=== PATIENT | female | born 1975 | race Caucasian/White ===

== ENCOUNTER 2016-08-22 12:04 | Emergency (ER) | payer SELFPAY ==
[~2016-08-22] VITALS: Ht 157.5 cm; Wt 79.4 kg
[2016-08-22] MEDS ORDERED: RT-ALBUTEROL/IPRATROPIUM 3 ML (DUONEB) VIAL INH ONE (13:15)
[2016-08-22] MEDS ORDERED: RT-ALBUINH IH (13:15)
[2016-08-22] MEDS ORDERED: AZIT250T5 PO (13:15)
--- NOTE | 2016-08-22 13:15 | ED Cough/URI ---
General Chief Complaint: Cough/Cold/Flu Symptoms Stated Complaint: COUGH/CONGESTION SOA CHEST PAIN Source: patient Exam Limitations: no limitations History of Present Illness Time seen by provider: 13:12 Initial Comments To ER with reports of a nonproductive cough for the past 2 days, central chest pain, neck pain, sore throat, rhinorrhea. History of asthma. She also has shortness of breath. No exogenous estrogen use, no dvt hx, non smoker, no unilateral leg swelling. Timing/Duration: getting worse Severity/Quality: moderate Associated Symptoms: cough, nasal congestion, nasal drainage, shortness of breath Allergies and Home Medications Allergies Coded Allergies: No Known Drug Allergies (Unverified , 08/22/16) Home Medications Albuterol Sulfate 8.5 Gm Hfa.aer.ad #1 1-2 PUFF IH Q4H PRN PRN SHORTNESS OF BREATH Prescribed by: LEAH MERRITT on 08/22/16 1315 Azithromycin 250 Mg Tablet #6 250 MG PO UD TAKE 2 TABLETS ON DAY ONE THEN TAKE 1 TABLET DAILY FOR FOUR MORE DAYS Prescribed by: LEAH MERRITT on 08/22/16 1315 Constitutional: see HPI EENTM: nose congestion Respiratory: see HPI short of breath Cardiovascular: no symptoms reported Genitourinary: no symptoms reported Musculoskeletal: no symptoms reported Skin: no symptoms reported Psychiatric/Neurological: No Symptoms Reported Hematologic/Lymphatic: No Symptoms Reported Past Qpkrwxz-Dvczkd-Oruqso Hx Patient Social History Alcohol Use: Denies Use Recreational Drug Use: No Smoking Status: Never a Smoker Recent Foreign Travel: No Contact w/Someone Who Travel: No Recent Hopitalizations: No Physical Abuse Screen: No Sexual Abuse: No Surgeries HX Surgeries: No Physical Exam Vital Signs Vital Sign - Last 12Hours Capillary Refill : General Appearance: WD/WN no apparent distress Eyes: Bilateral Eye EOMI, Bilateral Eye Normal Inspection, Bilateral Eye PERRL HEENT: PERRL/EOMI normal ENT inspection TM abnormal (R) (erythematous and bulging. She denies pain but states that it is itchy) Neck: non-tender full range of motion Respiratory: no respiratory distress no accessory muscle use decreased breath soundsNo crackles, No rales, No rhonchi, No stridor, No wheezing Cardiovascular: regular rate, rhythm no murmur Gastrointestinal: normal bowel sounds non tender soft Neurologic/Psychiatric: alert normal mood/affect oriented x 3 Skin: normal color warm/dry Progress/Results/Core Measures Results/Orders My Orders Orders-LEAH MERRITT APRN Ekg Tracing (08/22/16 13:11) Albuterol/Ipra Inhalation Soln (Duoneb I (08/22/16 13:15) Svn Sm Volume Nebulizer Rt-Rfs (08/22/16 13:11) Medications Given in ED Current Medications Medications Dose Ordered Sig/Roseline Route Start Time Stop Time Status Last Admin Dose Admin Albuterol/ Ipratropium 3 ml ONCE ONCE INH 08/22/16 13:15 08/22/16 13:16 DC 08/22/16 13:23 3 ML Vital Signs/I&O Vital Sign - Last 12Hours 08/22/16 08/22/16 08/22/16 13:05 13:05 13:24 Temp 98.9 Pulse 84 Resp 16 B/P 122/74 Pulse Ox 96 96 O2 Delivery Room Air Room Air Room Air Departure Communication Progress Notes 1349- Feels better after duoneb albeit somewhat jittery. O2 97% room air, no distress, HR 91. Impression Impression: Primary Impression: Upper respiratory infection Qualified Code: J06.9 - Acute upper respiratory infection, unspecified Additional Impression: Otitis media Disposition: HOME, SELF-CARE Condition: Improved Departure-Patient Inst. Decision time for Depature: 13:13 Referrals: NO,LOCAL PHYSICIAN (PCP/Family) Primary Care Physician Patient Instructions: Bacterial Upper Respiratory Infection, Adult, Ear Infections (Otitis Media) Add. Discharge Instructions: All discharge instructions reviewed with patient and/or family. Voiced understanding. Scripts Albuterol Sulfate (Proair Hfa)8.5 Gm Hfa.aer.ad1-2 Puff IH Q4H PRN SHORTNESS OF BREATH #1 INH Prov:LEAH MERRITT APRN 08/22/16 Azithromycin 250 Mg [id number] Mg PO UD #6 TAB TAKE 2 TABLETS ON DAY ONE THEN TAKE 1 TABLET DAILY FOR FOUR MORE DAYS Prov:LEAH MERRITT APRN 08/22/16 Work/School Note: Work Release Form Date Seen in the Emergency Department: Aug 22, 2016 Return to Work: Aug 24, 2016 LEAH MERRITT APRN Aug 22, 2016 13:15
[2016-08-22 13:54] VITALS: BP 122/74
== END 2016-08-22 13:54 | disposition home or self-care (01) ==
LOC: EDUNIT# 12:04 → ER 12:08
DX: J06.9 Acute upper respiratory infection, unspecified (principal); H66.91 Otitis media, unspecified, right ear
CPT/HCPCS: 93005

== ENCOUNTER 2017-10-12 19:01 | Emergency (ER) | payer SELFPAY ==
[~2017-10-12] VITALS: Ht 160 cm; Wt 90.7 kg
[~2017-10-12 19:01] MED LIST: AZIT250T12 PO; RT-ALBUINH IH
--- OUTSIDE RECORDS SUMMARY | 2017-10-12 19:06 | XMS REPORT | Continuity of Care Document ---
Author Author [facility] Address Unknown Phone Unavailable Allergies Active Description Code Type Severity Reaction Onset Reported/Identified Relationship to Patient Clinical Status Yes Demerol Drug Allergy 09/07/2010 Yes Stadol Drug Allergy 09/07/2010 Yes sulfa drug Drug Allergy 09/07/2010 Yes Vicodin Drug Allergy 06/22/2011 Medications There is no data. Problems Date Dx Coded Attending Type Code Diagnosis Diagnosed By 09/07/2010 MARYLOU AZAR APRN 493.90 ASTHMA 09/07/2010 493.90 ASTHMA 02/05/2011 MARYLOU AZAR APRN 599.0 Urinary Tract Infection Site Not Specified 02/05/2011 599.0 Urinary Tract Infection Site Not Specified 06/22/2011 MARYLOU AZAR APRN 626.9 Unspecified Disorders Of Menstruation And Other Abnormal Bleeding From Female Genital Tract 06/22/2011 MARYLOU AZAR APRN 788.1 Dysuria 06/22/2011 626.9 Unspecified Disorders Of Menstruation And Other Abnormal Bleeding From Female Genital Tract 06/22/2011 788.1 Dysuria 09/21/2011 MARYLOU AZAR APRN 786.2 COUGH 09/21/2011 786.2 COUGH 05/29/2012 MARYLOU AZAR APRN 786.07 WHEEZING 05/29/2012 786.07 WHEEZING 07/28/2012 MARYLOU AZAR APRN 053.9 HERPES ZOSTER WITHOUT COMPLICATION 07/28/2012 MARYLOU AZAR APRN 616.10 VAGINITIS AND VULVOVAGINITIS UNSPECIFIED 07/28/2012 MARYLOU AZAR APRN V76.10 BREAST CANCER SCREENING 07/28/2012 MARYLOU AZAR APRN V76.2 CERVICAL CANCER SCREENING (PAP SMEAR) Procedures Code Description Performed By Performed On Q0091 PAP SMEAR OBTAIN SMEAR 07/29/2012 85907 PAP SMEAR 08/01/2012 Results There is no data. Encounters ACCT No. Visit Date/Time Discharge Status Pt. Type Provider Facility Loc./Unit Complaint [id number] 07/28/2012 14:43:00 07/28/2012 23:59:59 CLS Outpatient MARYLOU AZAR APRN [id number] 05/29/2012 10:02:00 05/29/2012 23:59:59 CLS Outpatient
[2017-10-12] MEDS ORDERED: KETOROLAC 30 MG/ML VIAL IVP ONE (19:30)
[2017-10-12] MEDS ORDERED: NS IV 1000 ML 1,000 ML IV SCH (19:30)
--- NOTE | 2017-10-12 19:34 | ED Cough/URI ---
General Chief Complaint: Cough/Cold/Flu Symptoms Stated Complaint: CP, BACK PAIN,COUGH Nursing Triage Note: PT C/O COUGH, CHEST WALL PAIN, MACIAS, CONGESTION FOR A COUPLE OF DAYS. SHE DENIES FEVER OR CHILLS. Source: patient Exam Limitations: no limitations History of Present Illness Date Seen by Provider: Oct 12, 2017 Time Seen by Provider: 19:32 Initial Comments To ER with reports of a three-day history of central chest pain, productive cough, wheezing that clears when coughing in the left upper lung she states, no fever, headache, body aches. She has also had some diarrhea without blood or mucus. Timing/Duration: constant Severity/Quality: moderate Associated Symptoms: cough Allergies and Home Medications Allergies Coded Allergies: butorphanol (Verified Adverse Reaction, Unknown, VOMITING, 10/12/17) meperidine (Verified Adverse Reaction, Unknown, VOMITING, 10/12/17) Uncoded Allergies: SULFA (Adverse Reaction, Unknown, VOMITING, 10/12/17) Home Medications Albuterol Sulfate 8.5 Gm Hfa.aer.ad, 1-2 PUFF IH Q4H PRN for SHORTNESS OF BREATH Prescribed by: LEAH MERRITT on 08/22/16 1315 Azithromycin 250 Mg Tablet, 250 MG PO UD TAKE 2 TABLETS ON DAY ONE THEN TAKE 1 TABLET DAILY FOR FOUR MORE DAYS Prescribed by: LEAH MERRITT on 08/22/16 1315 Constitutional: see HPI, No chills, No fever EENTM: see HPI Respiratory: see HPI, cough, short of breath, wheezing Cardiovascular: no symptoms reported Genitourinary: no symptoms reported Musculoskeletal: no symptoms reported Skin: no symptoms reported Psychiatric/Neurological: No Symptoms Reported Hematologic/Lymphatic: No Symptoms Reported Immunological/Allergic: no symptoms reported Past Uzjbybe-Kjxqzn-Izdxyk Hx Patient Social History Alcohol Use: Denies Use Recreational Drug Use: No Smoking Status: Never a Smoker 2nd Hand Smoke Exposure: No Recent Foreign Travel: No Contact w/Someone Who Travel: No Recent Infectious Disease Expo: No Recent Hopitalizations: No Seasonal Allergies Seasonal Allergies: No Surgeries History of Surgeries: Yes Surgeries: Tubal Ligation Respiratory History of Respiratory Disorde: Yes Respiratory Disorders: Asthma Physical Exam Vital Signs Vital Signs - First Documented 10/12/17 19:11 Temp 97.5 Pulse 108 Resp 20 B/P (MAP) 143/89 (107) Pulse Ox 96 O2 Delivery Room Air Capillary Refill : Less Than 3 Seconds General Appearance: WD/WN, no apparent distress Eyes: Bilateral Eye Normal Inspection, Bilateral Eye PERRL, Bilateral Eye EOMI HEENT: PERRL/EOMI, normal ENT inspection Neck: non-tender, full range of motion Respiratory: normal breath sounds, no respiratory distress, no accessory muscle use Cardiovascular: no murmur, tachycardia Extremities: normal range of motion, non-tender Neurologic/Psychiatric: alert, normal mood/affect, oriented x 3 Skin: normal color, warm/dry Progress/Results/Core Measures Suspected Sepsis Recent Fever Within 48 Hours: No Infection Criteria Present: None New/Unexplained Altered Menta: No Sepsis Screen: No Definite Risk Sepsis Diagnosis: SIRS Temperature:97.5 Pulse: 108 Respiratory Rate: 20 Laboratory Tests 10/12/17 19:30: White Blood Count 6.4 Blood Pressure 143 /89 Mean: 107 Laboratory Tests 10/12/17 19:30: Creatinine 0.78, Platelet Count 252 Results/Orders Lab Results Laboratory Tests Test 10/12/17 19:30 Range/Units White Blood Count 6.4 4.3-11.0 10^3/uL Red Blood Count 4.82 4.35-5.85 10^6/uL Hemoglobin 13.4 11.5-16.0 G/DL Hematocrit 39 35-52 % Mean Corpuscular Volume 81 80-99 FL Mean Corpuscular Hemoglobin 28 25-34 PG Mean Corpuscular Hemoglobin Concent 34 32-36 G/DL Red Cell Distribution Width 13.8 10.0-14.5 % Platelet Count 252 130-400 10^3/uL Mean Platelet Volume 9.4 7.4-10.4 FL Neutrophils (%) (Auto) 58 42-75 % Lymphocytes (%) (Auto) 30 12-44 % Monocytes (%) (Auto) 9 0-12 % Eosinophils (%) (Auto) 3 0-10 % Basophils (%) (Auto) 0 0-10 % Neutrophils # (Auto) 3.7 1.8-7.8 X 10^3 Lymphocytes # (Auto) 1.9 1.0-4.0 X 10^3 Monocytes # (Auto) 0.6 0.0-1.0 X 10^3 Eosinophils # (Auto) 0.2 0.0-0.3 10^3/uL Basophils # (Auto) 0.0 0.0-0.1 10^3/uL Sodium Level 140 135-145 MMOL/L Potassium Level 4.0 3.6-5.0 MMOL/L Chloride Level 110 H 98-107 MMOL/L Carbon Dioxide Level 21 21-32 MMOL/L Anion Gap 9 5-14 MMOL/L Blood Urea Nitrogen 9 7-18 MG/DL Creatinine 0.78 0.60-1.30 MG/DL Estimat Glomerular Filtration Rate > 60 BUN/Creatinine Ratio 12 Glucose Level 122 H 70-105 MG/DL Calcium Level 9.1 8.5-10.1 MG/DL Micro Results Microbiology 10/12/17 Influenza Types A,B Antigen ([place]) - Final, Complete My Orders Orders - LEAH MERRITT APRN Chest Pa/Lat (2 View) (10/12/17 19:19) Cbc With Automated Diff (10/12/17 19:29) Basic Metabolic Panel (10/12/17 19:29) Influenza A And B Antigens (10/12/17 19:29) Saline Lock/Iv-Start (10/12/17 19:29) Ns Iv 1000 Ml (Sodium Chloride 0.9%) (10/12/17 19:30) Ketorolac Injection (Toradol Injection) (10/12/17 19:30) Medications Given in ED Current Medications Medications Dose Ordered Sig/Roseline Route Start Time Stop Time Status Last Admin Dose Admin Ketorolac Tromethamine 30 mg ONCE ONCE IVP 10/12/17 19:30 10/12/17 19:31 DC 10/12/17 19:41 30 MG Vital Signs/I&O Vital Sign - Last 12Hours 10/12/17 19:11 Temp 97.5 Pulse 108 Resp 20 B/P (MAP) 143/89 (107) Pulse Ox 96 O2 Delivery Room Air Capillary Refill : Less Than 3 Seconds Blood Pressure Mean: 107 Departure Impression Impression: Primary Impression: Viral syndrome Disposition: 01 HOME, SELF-CARE Condition: Stable Departure-Patient Inst. Decision time for Depature: 20:56 Referrals: NO,LOCAL PHYSICIAN (PCP/Family) Primary Care Physician Patient Instructions: Viral Syndrome (DC) Add. Discharge Instructions: 1. Return to ER for any concerns 2. Follow-up with your doctor next week 3. All discharge instructions reviewed with patient and/or family. Voiced understanding. Scripts D-Methorphan Hb/P-Epd HCl/Bpm (Bromfed Dm Cough Syrup) 118 Ml Syrup 5 ML PO Q6H Y for CONGESTION, #120 ML Prov: LEAH MERRITT APRN 10/12/17 LEAH MERRITT APRN Oct 12, 2017 19:34
[2017-10-12 19:46] LABS: BASOPHILS % (AUTO) 0 % (0-10); EOSINOPHILS # (AUTO) 0.2 10^3/uL (0.0-0.3); EOSINOPHILS % (AUTO) 3 % (0-10); HEMATOCRIT 39 % (35-52); HEMOGLOBIN 13.4 G/DL (11.5-16.0); LYMPHOCYTES # (AUTO) 1.9 X 10^3 (1.0-4.0); LYMPHOCYTES % (AUTO) 30 % (12-44); MEAN CORPUSCULAR HEMOGLOBIN 28 PG (25-34); MEAN CORPUSCULAR HGB CONC 34 G/DL (32-36); MEAN CORPUSCULAR VOLUME 81 FL (80-99); MEAN PLATELET VOLUME 9.4 FL (7.4-10.4); MONOCYTES # (AUTO) 0.6 X 10^3 (0.0-1.0); MONOCYTES % (AUTO) 9 % (0-12); NEUTROPHILS # (AUTO) 3.7 X 10^3 (1.8-7.8); NEUTROPHILS % (AUTO) 58 % (42-75); PLATELET COUNT 252 10^3/uL (130-400); RED BLOOD COUNT 4.82 10^6/uL (4.35-5.85); RED CELL DISTRIBUTION WIDTH 13.8 % (10.0-14.5); WHITE BLOOD COUNT 6.4 10^3/uL (4.3-11.0)
[2017-10-12 20:04] LABS: BUN/CREATININE RATIO 12; CALCIUM 9.1 MG/DL (8.5-10.1); CARBON DIOXIDE 21 MMOL/L (21-32); CHLORIDE 110 MMOL/L (98-107); CREATININE SERUM 0.78 MG/DL (0.60-1.30); GFR ESTIMATED > 60; GLUCOSE 122 MG/DL (70-105); SODIUM 140 MMOL/L (135-145)
--- NOTE | 2017-10-12 20:45 | Diagnostic Imaging Report ---
EXAMINATION: Chest (PA and lateral). CLINICAL INDICATION: 42-year-old female, cough, chest wall pain. COMPARISON: None. FINDINGS: Heart size and mediastinal contours are unremarkable. There is no identified pneumothorax. There is no pleural effusion. There is no identified focal airspace consolidation. IMPRESSION: No identified acute cardiopulmonary abnormality. Dictated by: Dictated on workstation # [id number]
[2017-10-12] MEDS ORDERED: D-ME118S33 PO (20:57)
[2017-10-12 21:00] VITALS: BP 143/89
== END 2017-10-12 21:00 | disposition home or self-care (01) ==
LOC: EDUNIT# 19:01 → ER 19:03
DX: B34.9 Viral infection, unspecified (principal); J45.909 Unspecified asthma, uncomplicated; Z98.51 Tubal ligation status; Z88.2 Allergy status to sulfonamides; Z88.5 Allergy status to narcotic agent; Z88.6 Allergy status to analgesic agent
CPT/HCPCS: 36415; 71046; 80048; 85025; 87804; 96361; 96374

== ENCOUNTER 2017-10-14 13:12 | Emergency (ER) | payer SELFPAY ==
[~2017-10-14] VITALS: Ht 160 cm; Wt 90.7 kg
[~2017-10-14 13:12] MED LIST changes: +D-ME118S33 PO
[2017-10-14 15:28] LABS: BILIRUBIN,URINE NEGATIVE (NEGATIVE); CLARITY,URINE SLIGHTLY CLOUDY; COLOR,URINE YELLOW; GLUCOSE, URINE (UA) NEGATIVE (NEGATIVE); KETONES,URINE NEGATIVE (NEGATIVE); LEUKOCYTE ESTERASE ,URINE NEGATIVE (NEGATIVE); NITRITE,URINE NEGATIVE (NEGATIVE); PH,URINE 7 (5-9); PROTEIN,URINE NEGATIVE (NEGATIVE); UROBILINOGEN,URINE NORMAL (NORMAL)
[2017-10-14 15:34] LABS: BACTERIA,URINE NEGATIVE /HPF
[2017-10-14] MEDS ORDERED: LACTATED RINGERS 1,000 ML IV ONE ×2 (15:42→15:43)
[2017-10-14] MEDS ORDERED: ONDANSETRON 4 MG/2 ML (SDV) Z0FRAN IVP ONE (15:45)
[2017-10-14] MEDS ORDERED: KETOROLAC 30 MG/ML VIAL IVP ONE (15:45)
[2017-10-14] MEDS ORDERED: RT-ALBUTEROL/IPRATROPIUM 3 ML (DUONEB) VIAL INH ONE (15:45)
--- NOTE | 2017-10-14 15:49 | ED Respiratory ---
General Chief Complaint: General Problems/Pain Stated Complaint: BACK PAIN,MACIAS Nursing Triage Note: PT TO ED W/ C/O BACK PAIN ONSET X3 DAYS, HEADACHE ONSET X4 DAYS ET COUGH/SOB ALSO ONSET X4 DAYS, WORSE WHEN SHE LAYS ON HER LT SIDE. DRY COUGH NOTED, NO SOB OBSERVED AT THIS TIME. PT ABLE TO TALK W/O PAUSING TO BREATH Source: patient Exam Limitations: no limitations History of Present Illness Date Seen by Provider: Oct 14, 2017 Time Seen by Provider: 15:34 Initial Comments Patient presents to the ER by private conveyance with a chief complaint of 3 days progressively worsening headache, nonproductive cough, shortness of breath , wheezing. She thought she might have the flu because she's had chills but she' s had no objective fever measured. She was here 2 days ago in the ER and had a negative influenza swab. Patient also has a headache that is bitemporal non- throbbing non intermittent that has not responded to one dose of Advil in the last 24 hours. She has not had any Tylenol. Last dose of Advil was sometime last night around 8:00. She has had to use her breathing treatments, MDI at home morning the last 2 days because of wheezing. Allergies and Home Medications Allergies Coded Allergies: butorphanol (Verified Adverse Reaction, Unknown, VOMITING, 10/12/17) meperidine (Verified Adverse Reaction, Unknown, VOMITING, 10/12/17) Uncoded Allergies: SULFA (Adverse Reaction, Unknown, VOMITING, 10/12/17) Home Medications Albuterol Sulfate 8.5 Gm Hfa.aer.ad, 1-2 PUFF IH Q4H PRN for SHORTNESS OF BREATH Prescribed by: LEAH MERRITT on 08/22/16 1315 Azithromycin 250 Mg Tablet, 250 MG PO UD TAKE 2 TABLETS ON DAY ONE THEN TAKE 1 TABLET DAILY FOR FOUR MORE DAYS Prescribed by: LEAH MERRITT on 08/22/16 1315 D-Methorphan Hb/P-Epd HCl/Bpm 118 Ml Syrup, 5 ML PO Q6H PRN for CONGESTION Prescribed by: LEAH MERRITT on 10/12/172056 Constitutional: chills, No diaphoresis, No fever, malaise EENTM: other (right ear itches), No ear discharge, No ear pain Respiratory: cough, No phlegm, short of breath, wheezing Cardiovascular: No chest pain, No edema, No palpitations Gastrointestinal: No abdominal pain, No constipation, No diarrhea, nausea, No vomiting Genitourinary: No discharge, No dysuria, No incontinence : No Musculoskeletal: No back pain, No joint pain Skin: No pruritus, No rash Psychiatric/Neurological: Headache, Denies Numbness, Denies Paresthesia Past Cguelwy-Ibxrpj-Daaabe Hx Patient Social History Alcohol Use: Denies Use Recreational Drug Use: No Smoking Status: Never a Smoker 2nd Hand Smoke Exposure: No Recent Foreign Travel: No Contact w/Someone Who Travel: No Recent Infectious Disease Expo: No Recent Hopitalizations: No Seasonal Allergies Seasonal Allergies: No Surgeries History of Surgeries: Yes Surgeries: Tubal Ligation Respiratory History of Respiratory Disorde: Yes Respiratory Disorders: Asthma Physical Exam Vital Signs Vital Signs - First Documented 10/14/17 14:26 Temp 98.2 Pulse 103 Resp 20 B/P (MAP) 137/68 (91) Pulse Ox 94 O2 Delivery Room Air Capillary Refill : Less Than 3 Seconds General Appearance: WD/WN, mild distress Eyes: Bilateral Eye Normal Inspection, Bilateral Eye PERRL, Bilateral Eye EOMI HEENT: PERRL/EOMI, pharynx normal, TM abnormal (R) (mild injection without loss of landmarks. Clear effusion.), other (mild bilateral maxillary sinus tenderness.) Neck: non-tender, supple, normal inspection Respiratory: chest non-tender, lungs clear, normal breath sounds, no respiratory distress, no accessory muscle use Cardiovascular: normal peripheral pulses, regular rate, rhythm Gastrointestinal: normal bowel sounds, non tender, soft Extremities: non-tender, normal inspection, normal capillary refill Neurologic/Psychiatric: alert, oriented x 3 Skin: normal color, warm/dry Progress/Results/Core Measures Suspected Sepsis Recent Fever Within 48 Hours: No Infection Criteria Present: None New/Unexplained Altered Menta: No Sepsis Screen: No Definite Risk Sepsis Diagnosis: SIRS Temperature:98.2 Pulse: 103 Respiratory Rate: 20 Laboratory Tests 10/14/17 15:55: White Blood Count 5.9 Blood Pressure 137 /68 Mean: 91 Laboratory Tests 10/14/17 15:55: Creatinine 0.77, Platelet Count 210, Total Bilirubin 0.4 Results/Orders Lab Results Laboratory Tests Test 10/14/17 15:15 10/14/17 15:55 Range/Units Urine Color YELLOW Urine Clarity SLIGHTLY CLOUDY Urine pH 7 5-9 Urine Specific [place] 1.005 L 1.016-1.022 Urine Protein NEGATIVE NEGATIVE Urine Glucose (UA) NEGATIVE NEGATIVE Urine Ketones NEGATIVE NEGATIVE Urine Nitrite NEGATIVE NEGATIVE Urine Bilirubin NEGATIVE NEGATIVE Urine Urobilinogen NORMAL NORMAL MG/DL Urine Leukocyte Esterase NEGATIVE NEGATIVE Urine RBC (Auto) 2+ H NEGATIVE Urine RBC 5-10 H /HPF Urine WBC NONE /HPF Urine Squamous Epithelial Cells 10-25 H /HPF Urine Crystals NONE /LPF Urine Bacteria NEGATIVE /HPF Urine Casts NONE /LPF Urine Mucus NEGATIVE /LPF Urine Culture Indicated NO Urine Test NEGATIVE NEGATIVE White Blood Count 5.9 4.3-11.0 10^3/uL Red Blood Count 4.95 4.35-5.85 10^6/uL Hemoglobin 13.7 11.5-16.0 G/DL Hematocrit 40 35-52 % Mean Corpuscular Volume 81 80-99 FL Mean Corpuscular Hemoglobin 28 25-34 PG Mean Corpuscular Hemoglobin Concent 34 32-36 G/DL Red Cell Distribution Width 13.8 10.0-14.5 % Platelet Count 210 130-400 10^3/uL Mean Platelet Volume 9.3 7.4-10.4 FL Neutrophils (%) (Auto) 64 42-75 % Lymphocytes (%) (Auto) 25 12-44 % Monocytes (%) (Auto) 9 0-12 % Eosinophils (%) (Auto) 2 0-10 % Basophils (%) (Auto) 0 0-10 % Neutrophils # (Auto) 3.8 1.8-7.8 X 10^3 Lymphocytes # (Auto) 1.5 1.0-4.0 X 10^3 Monocytes # (Auto) 0.5 0.0-1.0 X 10^3 Eosinophils # (Auto) 0.1 0.0-0.3 10^3/uL Basophils # (Auto) 0.0 0.0-0.1 10^3/uL Erythrocyte Sedimentation Rate 17 0-20 MM/HR Sodium Level 140 135-145 MMOL/L Potassium Level 3.6 3.6-5.0 MMOL/L Chloride Level 109 H 98-107 MMOL/L Carbon Dioxide Level 22 21-32 MMOL/L Anion Gap 9 5-14 MMOL/L Blood Urea Nitrogen 7 7-18 MG/DL Creatinine 0.77 0.60-1.30 MG/DL Estimat Glomerular Filtration Rate > 60 BUN/Creatinine Ratio 9 Glucose Level 113 H 70-105 MG/DL Calcium Level 8.9 8.5-10.1 MG/DL Magnesium Level 1.9 1.8-2.4 MG/DL Total Bilirubin 0.4 0.1-1.0 MG/DL Aspartate Amino Transf (AST/SGOT) 12 5-34 U/L Alanine Aminotransferase (ALT/SGPT) 8 0-55 U/L Alkaline Phosphatase 89 40-136 U/L C-Reactive Protein High Sensitivity 0.85 H 0.00-0.50 MG/DL Total Protein 7.1 6.4-8.2 GM/DL Albumin 4.0 3.2-4.5 GM/DL Micro Results Microbiology 10/14/17 Influenza Types A,B Antigen ([place]) - Final, Complete My Orders Orders - PASCUAL FRAZIER Ua Culture If Indicated (10/14/17 14:56) Cbc With Automated Diff (10/14/17 15:42) Comprehensive Metabolic Panel (10/14/17 15:42) Hs C Reactive Protein (10/14/17 15:42) Hcg,Qualitative Urine (10/14/17 15:42) Magnesium (10/14/17 15:42) Influenza A And B Antigens (10/14/17 15:42) Chest Pa/Lat (2 View) (10/14/17 15:42) Albuterol/Ipra Inhalation Soln (Duoneb I (10/14/17 15:45) Saline Lock/Iv-Start (10/14/17 15:42) Lactated Ringers (Lr 1000 Ml Iv Solution (10/14/17 15:42) Svn Sm Volume Nebulizer Rt-Rfs (10/14/17 15:42) Ondansetron Injection (Zofran Injectio (10/14/17 15:45) Ketorolac Injection (Toradol Injection) (10/14/17 15:45) Lactated Ringers (Lr 1000 Ml Iv Solution (10/14/17 15:43) Erythrocyte Sedimentation Rate (10/14/17 15:49) Acetaminophen Tablet (Tylenol Tablet) (10/14/17 16:00) Medications Given in ED Current Medications Medications Dose Ordered Sig/Roseline Route Start Time Stop Time Status Last Admin Dose Admin Acetaminophen 1,000 mg ONCE ONCE PO 10/14/17 16:00 10/14/17 16:01 DC 10/14/17 16:07 1,000 MG Albuterol/ Ipratropium 3 ml ONCE ONCE INH 10/14/17 15:45 10/14/17 15:46 DC 10/14/17 16:01 3 ML Ketorolac Tromethamine 15 mg ONCE ONCE IVP 10/14/17 15:45 10/14/17 15:46 DC 10/14/17 16:06 15 MG Lactated Ringer's 1,000 ml @ 0 mls/hr Q0M ONCE IV 10/14/17 15:42 10/14/17 15:45 DC 10/14/17 16:01 1,000 MLS/HR Ondansetron HCl 4 mg ONCE ONCE IVP 10/14/17 15:45 10/14/17 15:46 DC 10/14/17 16:06 4 MG Vital Signs/I&O Vital Sign - Last 12Hours 10/14/17 10/14/17 14:26 16:01 Temp 98.2 Pulse 103 Resp 20 B/P (MAP) 137/68 (91) Pulse Ox 94 94 O2 Delivery Room Air Room Air Capillary Refill : Less Than 3 Seconds Blood Pressure Mean: 91 Progress Note #1: Time: 15:48 Progress Note Patient may be having some maxillary sinus infection along with asthma exacerbation. We'll give her breathing treatments of fluids, Tylenol, Toradol, Zofran and see if can't make her feel better. We'll recheck a flu swab. We'll check a CRP ESR given her temporal headache to make sure it does not G CA although she is a little young. Progress Note #2: Time: 17:45 Progress Note Her breath sounds were terrible to start with but they're clearly moving good air now after her breathing treatment. Her headache is much improved on the NSAID. Recurrent encourage her to continue to use NSAIDs and Tylenol appropriately as well as make sure she has appropriate asthma medications and put her on some steroids for the next 5 days. Diagnostic Imaging Diagonstic Imaging: Xray Plain Films/CT/US/NM/MRI: chest (2v) Comments NAME: STAN GARCIA [facility] REC#: [id number] PHYSICIAN: PASCUAL FRAZIER MD CC: TRACE ZARAGOZA MD; PASCUAL FRAZIER Page 1 of 1 RADIOLOGY REPORT VIA [facility] [place], [place] CC: TRACE ZARAGOZA MD; PASCUAL FRAZIER Page 1 of 1 RADIOLOGY REPORT NAME: STAN GARCIA [facility] REC#: [id number] PT STATUS: REG ER : 1975 PHYSICIAN: PASCUAL FRAZIER MD ADMIT DATE: 10/14/17/ER Signed Date of Exam: 10/14/17 CHEST PA/LAT (2 VIEW) INDICATION: Shortness breath, wheezing EXAM: PA and lateral chest FINDINGS: Heart size and pulmonary vascularity are normal. The lungs are clear. There are no effusions or pneumothoraces. IMPRESSION: Negative chest. Dictated by: Dictated on workstation # [id number] Dict: 10/14/17 1629 Trans: 10/14/17 170 Interpreted by: TRACE ZARAGOZA MD Electronically signed by: TRACE ZARAGOZA MD 10/14/171701 Reviewed: Reviewed by Me Departure Impression Impression: Primary Impression: Bronchitis Additional Impressions: Asthma exacerbation Qualified Codes: J45.21 - Mild intermittent asthma with (acute) exacerbation Headache Qualified Codes: G44.209 - Tension-type headache, unspecified, not intractable Disposition: 01 HOME, SELF-CARE Condition: Improved Departure-Patient Inst. Decision time for Depature: 17:45 Referrals: NO,LOCAL PHYSICIAN (PCP/Family) Primary Care Physician Patient Instructions: Asthma, Adult (DC) Add. Discharge Instructions: Use your breathing treatment every 4 hours 2 puffs from the inhaler or one nebulizer as needed for wheezing or shortness of breath. If you're having a headache use 1000 mg of Tylenol every 6 hours as needed as well as ibuprofen 800 mg every 8 hours. If your headaches are not improving or you're not able to keep up with your breathing then you can return to your doctor or return to the ER. For your seasonal allergies or the itching you're feeling in your ear you can take one tablet 10 mg of either loratadine/Claritin or Zyrtec/cetirizine or Alexandra/Fexofenadine daily. You may use the cough medicine you been provided. If you don't feel like you're having some improvement over the next couple days you can follow-up with your primary care physician before the weekend to either extend the steroids or reevaluate you for further management. All discharge instructions reviewed with patient and/or family. Voiced understanding. Scripts Prednisone (Prednisone) 20 Mg Tab 40 MG PO DAILY for 5 Days, #10 TAB 0 Refills Prov: PASCUAL FRAZIER 10/14/17 Work/School Note: Work Release Form Date Seen in the Emergency Department: Oct 14, 2017 Return to Work: Oct 17, 2017 Restrictions: No Restrictions PASCUAL FRAZIER Oct 14, 2017 15:49
[2017-10-14] MEDS ORDERED: ACETAMINOPHEN 500 MG TAB (TYLENOL) PO ONE (16:00)
[2017-10-14 16:08] LABS: BASOPHILS % (AUTO) 0 % (0-10); EOSINOPHILS # (AUTO) 0.1 10^3/uL (0.0-0.3); EOSINOPHILS % (AUTO) 2 % (0-10); HEMATOCRIT 40 % (35-52); HEMOGLOBIN 13.7 G/DL (11.5-16.0); LYMPHOCYTES # (AUTO) 1.5 X 10^3 (1.0-4.0); LYMPHOCYTES % (AUTO) 25 % (12-44); MEAN CORPUSCULAR HEMOGLOBIN 28 PG (25-34); MEAN CORPUSCULAR HGB CONC 34 G/DL (32-36); MEAN CORPUSCULAR VOLUME 81 FL (80-99); MEAN PLATELET VOLUME 9.3 FL (7.4-10.4); MONOCYTES # (AUTO) 0.5 X 10^3 (0.0-1.0); MONOCYTES % (AUTO) 9 % (0-12); NEUTROPHILS # (AUTO) 3.8 X 10^3 (1.8-7.8); NEUTROPHILS % (AUTO) 64 % (42-75); PLATELET COUNT 210 10^3/uL (130-400); RED BLOOD COUNT 4.95 10^6/uL (4.35-5.85); RED CELL DISTRIBUTION WIDTH 13.8 % (10.0-14.5); WHITE BLOOD COUNT 5.9 10^3/uL (4.3-11.0)
[2017-10-14 16:26] LABS: ALANINE AMINOTRANSFERASE 8 U/L (0-55); ALKALINE PHOSPHATASE 89 U/L (40-136); BILIRUBIN,TOTAL 0.4 MG/DL (0.1-1.0); BUN/CREATININE RATIO 9; CALCIUM 8.9 MG/DL (8.5-10.1); CARBON DIOXIDE 22 MMOL/L (21-32); CHLORIDE 109 MMOL/L (98-107); CREATININE SERUM 0.77 MG/DL (0.60-1.30); ERYTHROCYTE SEDIMENTATION RATE 17 MM/HR (0-20); GFR ESTIMATED > 60; GLUCOSE 113 MG/DL (70-105); MAGNESIUM 1.9 MG/DL (1.8-2.4); POTASSIUM 3.6 MMOL/L (3.6-5.0); SODIUM 140 MMOL/L (135-145); TOTAL PROTEIN 7.1 GM/DL (6.4-8.2)
--- NOTE | 2017-10-14 16:33 | Diagnostic Imaging Report ---
INDICATION: Shortness breath, wheezing EXAM: PA and lateral chest FINDINGS: Heart size and pulmonary vascularity are normal. The lungs are clear. There are no effusions or pneumothoraces. IMPRESSION: Negative chest. Dictated by: Dictated on workstation # [id number]
[2017-10-14] MEDS ORDERED: PRD20T PO (17:53)
[2017-10-14 18:08] VITALS: BP 122/68
== END 2017-10-14 18:08 | disposition home or self-care (01) ==
LOC: EDUNIT# 13:12 → ER 13:14
DX: J45.901 Unspecified asthma with (acute) exacerbation (principal); R51 Headache; Z98.51 Tubal ligation status; Z88.2 Allergy status to sulfonamides; Z88.6 Allergy status to analgesic agent; Z88.5 Allergy status to narcotic agent
CPT/HCPCS: 36415; 71046; 80053; 81000; 83735; 84703; 85025; 85652; 86141; 87804; 94640

== ENCOUNTER 2018-10-21 12:46 | Emergency (ER) | payer BC, OTHER ==
[~2018-10-21] VITALS: Ht 157.5 cm; Wt 99.8 kg
[~2018-10-21 12:46] MED LIST changes: +PRD20T PO
--- NOTE | 2018-10-21 13:14 | ED GI ---
General Chief Complaint: L flank pain Stated Complaint: LT SIDE PAIN Source of Information: Patient Exam Limitations: No Limitations History of Present Illness Date Seen by Provider: Oct 21, 2018 Time Seen by Provider: 13:00 Timing/Duration: Other (20 min) Severity/Quality: Moderate Location: Flank (left) Radiation: No Radiation Activities at Onset: None 43-year-old female with past medical history of kidney stones presents with acute onset left-sided flank pain that differs from her typical kidney stone pain. Pain is sharp nonradiating localized to the left ribs. Her kidney stone pain is usually more in the back. The pain started approximately 20 minutes ago while she was at work at rest. She has not attempted to do anything for it. The pain is 4 of 10, she has associated nausea. No vomiting or diarrhea, hematochezia, tarry stools. She has had a nonproductive cough for the past 2 weeks. Denies any sick contacts. She has a history of bilateral tubal ligation, denies any vaginal discharge bleeding or symptoms. Last menstrual period was approximately 2 weeks ago Allergies and Home Medications Allergies Coded Allergies: butorphanol (Verified Adverse Reaction, Unknown, VOMITING, 10/12/17) meperidine (Verified Adverse Reaction, Unknown, VOMITING, 10/12/17) Uncoded Allergies: SULFA (Adverse Reaction, Unknown, VOMITING, 10/12/17) Home Medications Albuterol Sulfate 8.5 Gm Hfa.aer.ad, 1-2 PUFF IH Q4H PRN for SHORTNESS OF BREATH Prescribed by: LEAH MERRITT on 08/22/16 1315 Azithromycin 250 Mg Tablet, 250 MG PO UD TAKE 2 TABLETS ON DAY ONE THEN TAKE 1 TABLET DAILY FOR FOUR MORE DAYS Prescribed by: LEAH MERRITT on 08/22/16 1315 D-Methorphan Hb/P-Epd HCl/Bpm 118 Ml Syrup, 5 ML PO Q6H PRN for CONGESTION Prescribed by: LEAH MERRTIT on 10/12/172056 Prednisone 20 Mg Tab, 40 MG PO DAILY Prescribed by: PASCUAL FRAZIER on 10/14/17 175 Prednisone 20 Mg Tab, 40 MG PO DAILY Prescribed by: NADIA WELCH on 10/21/18 1448 Patient Home Medication List Home Medication List Reviewed: Yes Review of Systems Review of Systems Constitutional: No chills, No dizziness, No fever, No weakness EENTM: No Blurred Vision, No Double Vision Respiratory: Cough; Denies Shortness of Air Cardiovascular: Denies Chest Pain, Denies Edema Gastrointestinal: See HPI, Nausea; Denies Vomiting Genitourinary: Denies Burning, Denies Discharge; Flank Pain; Denies Hematuria Musculoskeletal: No back pain, No joint pain, No muscle pain Psychiatric/Neurological: Denies Anxiety, Denies Numbness Past Hzympdi-Zuhcsn-Njqceq Hx Past Med/Social Hx: Reviewed Nursing Past Med/Soc Hx Patient Social History 2nd Hand Smoke Exposure: No Recent Foreign Travel: No Contact w/Someone Who Travel: No Recent Hopitalizations: No Seasonal Allergies Seasonal Allergies: No Past Medical History Surgeries: Yes Tubal Ligation Respiratory: Yes Asthma Physical Exam Vital Signs Vital Signs - First Documented 10/21/18 12:55 Temp 97.7 Pulse 101 Resp 16 B/P (MAP) 117/62 (80) Pulse Ox 96 O2 Delivery Room Air Capillary Refill : Height/Weight/BMI Height: 5'3.00" Weight: 200lbs. oz. 90.630544fe; BMI Method:Stated General Appearance: WD/WN, no apparent distress HEENT: PERRL/EOMI, normal ENT inspection, TMs normal, pharynx normal Neck: non-tender, full range of motion, supple, normal inspection Respiratory: chest non-tender, lungs clear, normal breath sounds, no respiratory distress, no accessory muscle use Cardiovascular: normal peripheral pulses, regular rate, rhythm, no edema, no gallop, no JVD, no murmur Gastrointestinal: normal bowel sounds, non tender, soft, no organomegaly, no pulsatile mass Extremities: normal range of motion, non-tender, normal inspection, no pedal edema, no calf tenderness, normal capillary refill, pelvis stable Back: normal inspection, no CVA tenderness, no vertebral tenderness Neurologic/Psychiatric: no motor/sensory deficits, alert, normal mood/affect, oriented x 3 Skin: normal color, warm/dry Progress/Results/Core Measures Results/Orders Lab Results Laboratory Tests Test 10/21/18 13:20 10/21/18 13:52 Range/Units White Blood Count 9.4 4.3-11.0 10^3/uL Red Blood Count 5.06 4.35-5.85 10^6/uL Hemoglobin 13.6 11.5-16.0 G/DL Hematocrit 41 35-52 % Mean Corpuscular Volume 82 80-99 FL Mean Corpuscular Hemoglobin 27 25-34 PG Mean Corpuscular Hemoglobin Concent 33 32-36 G/DL Red Cell Distribution Width 13.8 10.0-14.5 % Platelet Count 247 130-400 10^3/uL Mean Platelet Volume 9.0 7.4-10.4 FL Neutrophils (%) (Auto) 72 42-75 % Lymphocytes (%) (Auto) 207 H 12-44 % Monocytes (%) (Auto) 6 0-12 % Eosinophils (%) (Auto) 1 0-10 % Basophils (%) (Auto) 0 0-10 % Neutrophils # (Auto) 6.8 1.8-7.8 X 10^3 Lymphocytes # (Auto) 2.0 1.0-4.0 X 10^3 Monocytes # (Auto) 0.6 0.0-1.0 X 10^3 Eosinophils # (Auto) 0.1 0.0-0.3 10^3/uL Basophils # (Auto) 0.0 0.0-0.1 10^3/uL Sodium Level 140 135-145 MMOL/L Potassium Level 3.8 3.6-5.0 MMOL/L Chloride Level 104 98-107 MMOL/L Carbon Dioxide Level 20 L 21-32 MMOL/L Anion Gap 16 H 5-14 MMOL/L Blood Urea Nitrogen 11 7-18 MG/DL Creatinine 0.74 0.60-1.30 MG/DL Estimat Glomerular Filtration Rate > 60 BUN/Creatinine Ratio 15 Glucose Level 119 H 70-105 MG/DL Calcium Level 9.2 8.5-10.1 MG/DL Corrected Calcium 9.2 8.5-10.1 MG/DL Total Bilirubin 0.4 0.1-1.0 MG/DL Aspartate Amino Transf (AST/SGOT) 10 5-34 U/L Alanine Aminotransferase (ALT/SGPT) 8 0-55 U/L Alkaline Phosphatase 106 40-136 U/L Total Protein 7.3 6.4-8.2 GM/DL Albumin 4.0 3.2-4.5 GM/DL Lipase 62 8-78 U/L Serum Test, Qualitative NEGATIVE NEGATIVE Urine Color YELLOW Urine Clarity CLEAR Urine pH 6 5-9 Urine Specific [place] >=1.030 1.016-1.022 Urine Protein 1+ H NEGATIVE Urine Glucose (UA) 1+ H NEGATIVE Urine Ketones NEGATIVE NEGATIVE Urine Nitrite NEGATIVE NEGATIVE Urine Bilirubin NEGATIVE NEGATIVE Urine Urobilinogen 0.2 NORMAL MG/DL Urine Leukocyte Esterase NEGATIVE NEGATIVE Urine RBC (Auto) TRACE-I NEGATIVE Urine RBC 0-2 /HPF Urine WBC NONE /HPF Urine Squamous Epithelial Cells >50 H /HPF Urine Crystals NONE /LPF Urine Bacteria NEGATIVE /HPF Urine Casts NONE /LPF Urine Mucus LARGE H /LPF Urine Other /HPF Urine Culture Indicated NO My Orders Orders - NADIA WELCH MD Comprehensive Metabolic Panel (10/21/18 13:04) Lipase (10/21/18 13:04) Ua Culture If Indicated (10/21/18 13:04) Hcg,Qualitative Serum (10/21/18 13:04) Cbc With Automated Diff (10/21/18 13:04) Chest Pa/Lat (2 View) (10/21/18 13:04) Vital Signs/I&O 10/21/18 12:55 Temp 97.7 Pulse 101 Resp 16 B/P (MAP) 117/62 (80) Pulse Ox 96 O2 Delivery Room Air Progress Progress Note : Progress Note She was offered pain and nausea medicines but declined at the time of my initial exam. Diagnostic Imaging Diagonstic Imaging: Ultrasound Plain Films/CT/US/NM/MRI: other (Renal) Comments Bedside ultrasound performed by me, limited renal ultrasound, no hydronephrosis , no bladder distention, no acute abnormalities. Reviewed: Other (Performed and reviewed by me) Diagonstic Imaging: Xray Plain Films/CT/US/NM/MRI: chest (Two-view) Comments No acute process Reviewed: Reviewed by Me Departure Impression Primary Impression: Rib pain on left side Disposition: 01 HOME, SELF-CARE Condition: Stable Departure-Patient Inst. Decision time for Depature: 14:45 Referrals: VITA GRAY (PCP) Primary Care Physician ISHMAEL SANDERSON MD (Family) Primary Care Physician Patient Instructions: Muscle Strain (DC) Scripts Prednisone (Prednisone) 20 Mg Tab 40 MG PO DAILY for 5 Days, #10 TAB 0 Refills Prov: NADIA WELCH MD 10/21/18 NADIA WELCH MD Oct 21, 2018 13:14
--- OUTSIDE RECORDS SUMMARY | 2018-10-21 13:28 | XMS REPORT | Continuity of Care Document ---
Author Author [facility] Address Unknown Phone Unavailable Allergies Active Description Code Type Severity Reaction Onset Reported/Identified Relationship to Patient Clinical Status Yes Demerol Drug Allergy 09/07/2010 Yes Stadol Drug Allergy 09/07/2010 Yes sulfa drug Drug Allergy 09/07/2010 Yes Vicodin Drug Allergy 06/22/2011 Yes No Known Drug Allergies [id number] Drug Allergy Unknown N/A 08/22/2016 Yes butorphanol [id number] Drug Allergy Unknown VOMITING 10/12/2017 Yes meperidine [id number] Drug Allergy Unknown VOMITING 10/12/2017 Yes SULFA SULFA Unknown VOMITING 10/12/2017 Medications There is no data. Problems Date [...] AND VULVOVAGINITIS UNSPECIFIED 07/28/2012 MARYLOU AZAR APRN S V76.10 BREAST CANCER SCREENING 07/28/2012 MARYLOU AZAR APRN V76.2 CERVICAL CANCER SCREENING (PAP SMEAR) 08/22/2016 LEAH MERRITT CAR GROOMER Ot H66.91 OTITIS MEDIA, UNSPECIFIED, RIGHT EAR 08/22/2016 LEAH MERRITT CAR GROOMER Ot J06.9 ACUTE UPPER RESPIRATORY INFECTION, UNSPE 08/22/2016 LEAH MERRITT CAR GROOMER Ot R05 COUGH 08/23/2016 LEAH MERRITT CAR GROOMER Ot H66.91 OTITIS MEDIA, UNSPECIFIED, RIGHT EAR 08/23/2016 LEAH MERRITT APRN Ot J06.9 ACUTE UPPER RESPIRATORY INFECTION, UNSPE 08/23/2016 LEAH MERRITT APRN Ot R05 COUGH 10/12/2017 LEAH MERRITT CAR GROOMER Ot B34.9 VIRAL INFECTION, UNSPECIFIED 10/12/2017 LEAH MERRITT APRN Ot J45.909 UNSPECIFIED ASTHMA, UNCOMPLICATED 10/12/2017 LEAH MERRITT CAR GROOMER Ot R07.89 OTHER CHEST PAIN 10/12/2017 LEAH MERRITT APRN Ot Z88.2 ALLERGY STATUS TO SULFONAMIDES STATUS 10/12/2017 LEAH MERRITT APRN Ot Z88.5 ALLERGY STATUS TO NARCOTIC AGENT STATUS 10/12/2017 LEAH MERRITT CAR GROOMER Ot Z88.6 ALLERGY STATUS TO ANALGESIC AGENT STATUS 10/12/2017 LEAH MERRITT APRN Ot Z98.51 TUBAL LIGATION STATUS 10/14/2017 LEAH MERRITT APRN Ot B34.9 VIRAL INFECTION, UNSPECIFIED 10/14/2017 LEAH MERRITT CAR GROOMER Ot J45.909 UNSPECIFIED ASTHMA, UNCOMPLICATED 10/14/2017 LEAH MERRITT CAR GROOMER Ot R07.89 OTHER CHEST PAIN 10/14/2017 LEAH MERRITT CAR GROOMER Ot Z88.2 ALLERGY STATUS TO SULFONAMIDES STATUS 10/14/2017 LEAH MERRITT CAR GROOMER Ot Z88.5 ALLERGY STATUS TO NARCOTIC AGENT STATUS 10/14/2017 LEAH MERRITT CAR GROOMER Ot Z88.6 ALLERGY STATUS TO ANALGESIC AGENT STATUS 10/14/2017 LEAH MERRITT CAR GROOMER Ot Z98.51 TUBAL LIGATION STATUS 10/14/2017 PASCUAL FRAZIER MD J Ot J45.901 UNSPECIFIED ASTHMA WITH (ACUTE) EXACERBA 10/14/2017 PASCUAL FRAZIER MD Ot R06.02 SHORTNESS OF BREATH 10/14/2017 PASCUAL FRAZIER MD J Ot R51 HEADACHE 10/14/2017 PASCUAL FRAZIER MD J Ot Z88.2 ALLERGY STATUS TO SULFONAMIDES STATUS 10/14/2017 PASCUAL FRAZIER MD J Ot Z88.5 ALLERGY STATUS TO NARCOTIC AGENT STATUS 10/14/2017 PASCUAL FRAZIER MD J Ot Z88.6 ALLERGY STATUS TO ANALGESIC AGENT STATUS 10/14/2017 PASCUAL FRAZIER MD Ot Z98.51 TUBAL LIGATION STATUS 10/15/2017 PASCUAL FRAZIER MD Ot J45.901 UNSPECIFIED ASTHMA WITH (ACUTE) EXACERBA 10/15/2017 PASCUAL FRAZIER MD Ot R06.02 SHORTNESS OF BREATH 10/15/2017 PASCUAL FRAZIER MD Ot R51 HEADACHE 10/15/2017 PASCUAL FRAZIER MD Ot Z88.2 ALLERGY STATUS TO SULFONAMIDES STATUS 10/15/2017 PASCUAL FRAZIER MD J Ot Z88.5 ALLERGY STATUS TO NARCOTIC AGENT STATUS 10/15/2017 PASCUAL FRAZIER MD J Ot Z88.6 ALLERGY STATUS TO ANALGESIC AGENT STATUS 10/15/2017 PASCUAL FRAZIER MD J Ot Z98.51 TUBAL LIGATION STATUS Procedures Code Description Performed By Performed On Q0091 PAP SMEAR OBTAIN SMEAR 07/29/2012 29205 PAP SMEAR 08/01/2012 Results Test Result Range Complete blood count (CBC) with automated white blood cell (WBC) differential - 10/12/17 19:30 Blood leukocytes automated count (number/volume) 6.4 10*3/uL 4.3-11.0 Blood erythrocytes automated count (number/volume) 4.82 10*6/uL 4.35-5.85 Venous blood hemoglobin measurement (mass/volume) 13.4 g/dL 11.5-16.0 Blood hematocrit (volume fraction) 39 % 35-52 Automated erythrocyte mean corpuscular volume 81 [foz_us] 80-99 Automated erythrocyte mean corpuscular hemoglobin (mass per erythrocyte) 28 pg 25-34 Automated erythrocyte mean corpuscular hemoglobin concentration measurement ( mass/volume) 34 g/dL 32-36 Automated erythrocyte distribution width ratio 13.8 % 10.0-14.5 Automated blood platelet count (count/volume) 252 10*3/uL 130-400 Automated blood platelet mean volume measurement 9.4 [foz_us] 7.4-10.4 Automated blood neutrophils/100 leukocytes 58 % 42-75 Automated blood lymphocytes/100 leukocytes 30 % 12-44 Blood monocytes/100 leukocytes 9 % 0-12 Automated blood eosinophils/100 leukocytes 3 % 0-10 Automated blood basophils/100 leukocytes 0 % 0-10 Blood neutrophils automated count (number/volume) 3.7 10*3 1.8-7.8 Blood lymphocytes automated count (number/volume) 1.9 10*3 1.0-4.0 Blood monocytes automated count (number/volume) 0.6 10*3 0.0-1.0 Automated eosinophil count 0.2 10*3/uL 0.0-0.3 Automated blood basophil count (count/volume) 0.0 10*3/uL 0.0-0.1 Whole blood basic metabolic panel - 10/12/17 19:30 Serum or plasma sodium measurement (moles/volume) 140 mmol/L 135-145 Serum or plasma potassium measurement (moles/volume) 4.0 mmol/L 3.6-5.0 Serum or plasma chloride measurement (moles/volume) 110 mmol/L 98-107 Carbon dioxide 21 mmol/L 21-32 Serum or plasma anion gap determination (moles/volume) 9 mmol/L 5-14 Serum or plasma urea nitrogen measurement (mass/volume) 9 mg/dL 7-18 Serum or plasma creatinine measurement (mass/volume) 0.78 mg/dL 0.60-1.30 Serum or plasma urea nitrogen/creatinine mass ratio 12 NRG Serum or plasma creatinine measurement with calculation of estimated glomerular filtration rate > NRG Serum or plasma glucose measurement (mass/volume) 122 mg/dL 70-105 Serum or plasma calcium measurement (mass/volume) 9.1 mg/dL 8.5-10.1 Influenza virus A and B antigen detection - 10/12/17 19:38 FLU RESULT NEGATIVE FOR INFLUENZA A AND B ANTIGENS BY IA NRG Complete urinalysis with reflex to culture - 10/14/17 15:15 Urine color determination YELLOW NRG Urine clarity determination SLIGHTLY CLOUDY NRG Urine pH measurement by test strip 7 5-9 Specific gravity of urine by test strip 1.005 1.016- 1.022 Urine protein assay by test strip, semi-quantitative NEGATIVE NEGATIVE Urine glucose detection by automated test strip NEGATIVE NEGATIVE Erythrocytes detection in urine sediment by light microscopy 2+ NEGATIVE Urine ketones detection by automated test strip NEGATIVE NEGATIVE Urine nitrite detection by test strip NEGATIVE NEGATIVE Urine total bilirubin detection by test strip NEGATIVE NEGATIVE Urine urobilinogen measurement by automated test strip (mass/volume) NORMAL NORMAL Urine leukocyte esterase detection by dipstick NEGATIVE NEGATIVE Automated urine sediment erythrocyte count by microscopy (number/high power field) [HPF] NRG Automated urine sediment leukocyte count by microscopy (number/high power field ) NONE NRG Bacteria detection in urine sediment by light microscopy NEGATIVE NRG Squamous epithelial cells detection in urine sediment by light microscopy 10-25 NRG Crystals detection in urine sediment by light microscopy NONE NRG Casts detection in urine sediment by light microscopy NONE NRG Mucus detection in urine sediment by light microscopy NEGATIVE NRG Complete urinalysis with reflex to culture NO NRG Urine beta human chorionic gonadotropin (hCG) measurement - 10/14/17 15:15 Urine beta human chorionic gonadotropin (hCG) measurement NEGATIVE NEGATIVE Complete blood count (CBC) with automated white blood cell (WBC) differential - 10/14/17 15:55 Blood leukocytes automated count (number/volume) 5.9 10*3/uL 4.3-11.0 Blood erythrocytes automated count (number/volume) 4.95 10*6/uL 4.35-5.85 Venous blood hemoglobin measurement (mass/volume) 13.7 g/dL 11.5-16.0 Blood hematocrit (volume fraction) 40 % 35-52 Automated erythrocyte mean corpuscular volume 81 [foz_us] 80-99 Automated erythrocyte mean corpuscular hemoglobin (mass per erythrocyte) 28 pg 25-34 Automated erythrocyte mean corpuscular hemoglobin concentration measurement ( mass/volume) 34 g/dL 32-36 Automated erythrocyte distribution width ratio 13.8 % 10.0-14.5 Automated blood platelet count (count/volume) 210 10*3/uL 130-400 Automated blood platelet mean volume measurement 9.3 [foz_us] 7.4-10.4 Automated blood neutrophils/100 leukocytes 64 % 42-75 Automated blood lymphocytes/100 leukocytes 25 % 12-44 Blood monocytes/100 leukocytes 9 % 0-12 Automated blood eosinophils/100 leukocytes 2 % 0-10 Automated blood basophils/100 leukocytes 0 % 0-10 Blood neutrophils automated count (number/volume) 3.8 10*3 1.8-7.8 Blood lymphocytes automated count (number/volume) 1.5 10*3 1.0-4.0 Blood monocytes automated count (number/volume) 0.5 10*3 0.0-1.0 Automated eosinophil count 0.1 10*3/uL 0.0-0.3 Automated blood basophil count (count/volume) 0.0 10*3/uL 0.0-0.1 Erythrocyte sedimentation rate by westergren method - 10/14/17 15:55 Erythrocyte sedimentation rate by westergren method 17 mm 0-20 Comprehensive metabolic panel - 10/14/17 15:55 Serum or plasma sodium measurement (moles/volume) 140 mmol/L 135-145 Serum or plasma potassium measurement (moles/volume) 3.6 mmol/L 3.6-5.0 Serum or plasma chloride measurement (moles/volume) 109 mmol/L 98-107 Carbon dioxide 22 mmol/L 21-32 Serum or plasma anion gap determination (moles/volume) 9 mmol/L 5-14 Serum or plasma urea nitrogen measurement (mass/volume) 7 mg/dL 7-18 Serum or plasma creatinine measurement (mass/volume) 0.77 mg/dL 0.60-1.30 Serum or plasma urea nitrogen/creatinine mass ratio 9 NRG Serum or plasma creatinine measurement with calculation of estimated glomerular filtration rate > NRG Serum or plasma glucose measurement (mass/volume) 113 mg/dL 70-105 Serum or plasma calcium measurement (mass/volume) 8.9 mg/dL 8.5-10.1 Serum or plasma total bilirubin measurement (mass/volume) 0.4 mg/dL 0.1-1.0 Serum or plasma alkaline phosphatase measurement (enzymatic activity/volume) 89 U/L 40-136 Serum or plasma aspartate aminotransferase measurement (enzymatic activity/ volume) 12 U/L 5-34 Serum or plasma alanine aminotransferase measurement (enzymatic activity/volume ) 8 U/L 0-55 Serum or plasma protein measurement (mass/volume) 7.1 g/dL 6.4-8.2 Serum or plasma albumin measurement (mass/volume) 4.0 g/dL 3.2-4.5 Magnesium - 10/14/17 15:55 Magnesium 1.9 mg/dL 1.8-2.4 Serum or plasma C reactive protein measurement (mass/volume) - 10/14/17 15:55 Serum or plasma C reactive protein measurement (mass/volume) 0.85 mg /dL 0.00-0.50 Influenza virus A and B antigen detection - 10/14/17 17:15 FLU RESULT NEGATIVE FOR INFLUENZA A AND B ANTIGENS BY IA NRG Encounters ACCT No. Visit Date/Time Discharge Status Pt. Type Provider Facility Loc./Unit Complaint [id number] 07/28/2012 14:43:00 07/28/2012 23:59:59 CLS Outpatient MARYLOU AZAR APRN [id number] 05/29/2012 10:02:00 05/29/2012 23:59:59 CLS Outpatient [id number] 10/14/2017 13:14:00 10/14/2017 18:08:00 DIS Emergency FREDDIE BRUNO, PASCUAL Warner [facility] ER BACK PAIN,MACIAS [id number] 10/12/2017 19:03:00 10/12/2017 21:00:00 DIS Emergency LEAH MERRITT APRN [facility] ER CP, BACK PAIN,COUGH [id number] 08/22/2016 12:08:00 08/22/2016 13:54:00 DIS Emergency LEAH MERRITT APRN [facility] ER COUGH/CONGESTION SOA CHEST PAIN [id number] 10/21/2018 12:48:00 ACT Emergency NADIA WELCH MD [facility] ER FS LT SIDE PAIN [id number] 10/16/2018 09:20:00 10/16/2018 23:59:59 CLS Outpatient VITA GRAY
--- OUTSIDE RECORDS SUMMARY | 2018-10-21 13:28 | XMS REPORT ---
Author Author MARYLOU AZAR [facility] Address [address] [place] [address] Care Team Providers Care Global Product Manager Name Role Phone MARYLOU AZAR Unavailable PROBLEMS Type Condition ICD9-CM Code [id number] Code Onset Dates Condition Status SNOMED Code Problem Herpes zoster without mention of complication 053.9 Active 542815697 Problem Unspecified vaginitis and vulvovaginitis 616.10 Active 028862017 Problem Unspecified breast screening V76.10 Active 634996913 Problem Screening for malignant neoplasm of the cervix V76.2 Active 641628660 Problem Wheezing 786.07 Active 64455476 Problem Cough 786.2 Active 66929931 ALLERGIES No Known Allergies ENCOUNTERS Encounter Location Date Diagnosis [facility] [id number] [place] [phone] Mar, Acute left-sided low back pain without sciatica M54.5 [facility] [id number] [place] [address] Nov, [facility] [id number] [place] [address] Nov, [facility] [id number] [place] [address] Aug, [facility] [id number] [place] [address] Aug, [facility] [address] [address] Jul, [facility] [id number] [place] [address] Jul, [facility] [address] [address] 14 Jul, 2012 [facility] [place] [facility] [address] [id number] [place] [address] 13 Jul, 2012 [facility] [place] [facility] [address] [id number] [place] [address] 10 Jul, 2012 [facility] [place] [facility] [address] [facility] [id number] [place] [address] 10 Jul, 2012 [facility] [place] [facility] [address] [id number] [place] [address] 15 Jun, 2012 [facility] [place] [facility] [address] [id number] [place] [address] 15 Jun, 2012 [facility] [place] [facility] [address] [facility] [id number] [place] [address] 11 May, 2012 [facility] [place] [facility] [address] [facility] [id number] [place] [address] 11 May, 2012 [facility] [place] [facility] [address] [id number] [place] [address] 10 Sep, 2011 [facility] [place] [facility] [address] [facility] [id number] [place] [address] 06 Sep, 2011 [facility] [place] [facility] [address] [facility] [id number] [place] [address] 03 Sep, 2011 [facility] [place] [facility] [address] [facility] [id number] [place] [address] 03 Sep, 2011 [facility] [place] [facility] [address] [facility] [id number], [place] [address] 13 Jul, 2011 [facility] [place] [facility] [address] [id number] [place] [address] 13 Jul, 2011 [facility] [place] [facility] [address] [facility] [id number] [place] [address] 10 Jun, 2011 [facility] [place] [facility] [address] [facility] [id number], [place] [address] 04 Jun, 2011 [facility] [place] [facility] [address] [facility] [id number] [place] [address] Jan, [facility] [address] [facility] [id number] [place] [address] Aug, IMMUNIZATIONS No Known Immunizations SOCIAL HISTORY Never Assessed REASON FOR VISIT back pain- Lower back pain, starting yesterday- Madeline Deleon RN PLAN OF CARE Activity Details Follow Up prn Reason: VITAL SIGNS Height 63 in 2017-04-12 Weight 210 lbs 2017-04-12 Temperature 98.0 degrees Fahrenheit 2017-04-12 Heart Rate 80 bpm 2017-04-12 Respiratory Rate 20 2017-04-12 BMI 37.20 kg/m2 2017-04-12 Blood pressure systolic 112 mmHg 2017-04-12 Blood pressure diastolic 72 mmHg 2017-04-12 MEDICATIONS Medication Instructions Dosage Frequency Start Date End Date Duration Status Albuterol take 2 puffs by Inhalation route every 6 hoursPRN May, Active Cyclobenzaprine HCl 10 mg Orally at bedtime 1 tablet as needed Mar, Active RESULTS No Results PROCEDURES No Known procedures INSTRUCTIONS MEDICATIONS ADMINISTERED No Known Medications
[2018-10-21 13:42] LABS: HEMATOCRIT 41 % (35-52); HEMOGLOBIN 13.6 G/DL (11.5-16.0); MEAN CORPUSCULAR HEMOGLOBIN 27 PG (25-34); MEAN CORPUSCULAR VOLUME 82 FL (80-99); WHITE BLOOD COUNT 9.4 10^3/uL (4.3-11.0)
[2018-10-21 13:43] LABS: BASOPHILS % (AUTO) 0 % (0-10); EOSINOPHILS # (AUTO) 0.1 10^3/uL (0.0-0.3); EOSINOPHILS % (AUTO) 1 % (0-10); LYMPHOCYTES % (AUTO) 207 % (12-44); MEAN CORPUSCULAR HGB CONC 33 G/DL (32-36); MONOCYTES # (AUTO) 0.6 X 10^3 (0.0-1.0); MONOCYTES % (AUTO) 6 % (0-12); NEUTROPHILS # (AUTO) 6.8 X 10^3 (1.8-7.8); NEUTROPHILS % (AUTO) 72 % (42-75); PLATELET COUNT 247 10^3/uL (130-400); RED CELL DISTRIBUTION WIDTH 13.8 % (10.0-14.5)
--- NOTE | 2018-10-21 14:00 | Diagnostic Imaging Report ---
Patient History: Cough. Technique: Two views of the chest Comparison: 10/14/2017 FINDINGS: The lung volumes are normal. No focal consolidation is seen. No large pleural effusion or pneumothorax is seen. The cardiomediastinal silhouette is normal in size and contour. No acute osseous abnormality is seen. IMPRESSION: No acute pulmonary abnormality seen. Dictated by: Dictated on workstation # [id number]
[2018-10-21 14:11] LABS: ALANINE AMINOTRANSFERASE 8 U/L (0-55); ALKALINE PHOSPHATASE 106 U/L (40-136); BILIRUBIN,TOTAL 0.4 MG/DL (0.1-1.0); BUN/CREATININE RATIO 15; CALCIUM 9.2 MG/DL (8.5-10.1); CARBON DIOXIDE 20 MMOL/L (21-32); CHLORIDE 104 MMOL/L (98-107); CREATININE SERUM 0.74 MG/DL (0.60-1.30); GFR ESTIMATED > 60; GLUCOSE 119 MG/DL (70-105); LIPASE 62 U/L (8-78); POTASSIUM 3.8 MMOL/L (3.6-5.0); SODIUM 140 MMOL/L (135-145); TOTAL PROTEIN 7.3 GM/DL (6.4-8.2)
[2018-10-21 14:22] LABS: BACTERIA,URINE NEGATIVE /HPF; BILIRUBIN,URINE NEGATIVE (NEGATIVE); CLARITY,URINE CLEAR; COLOR,URINE YELLOW; GLUCOSE, URINE (UA) 1+ (NEGATIVE); KETONES,URINE NEGATIVE (NEGATIVE); LEUKOCYTE ESTERASE ,URINE NEGATIVE (NEGATIVE); NITRITE,URINE NEGATIVE (NEGATIVE); PH,URINE 6 (5-9); PROTEIN,URINE 1+ (NEGATIVE); RBC,URINE 0-2 /HPF; SQUAMOUS EPITHELIAL CELL,UR >50 /HPF; UROBILINOGEN,URINE 0.2 MG/DL (NORMAL)
[2018-10-21] MEDS ORDERED: PRD20T PO (14:48)
[2018-10-21 14:50] VITALS: BP 111/60
== END 2018-10-21 14:50 | disposition home or self-care (01) ==
LOC: EDUNIT# 12:46 → ER FS 12:48
DX: R07.81 Pleurodynia (principal); J45.909 Unspecified asthma, uncomplicated; Z88.8 Allergy status to other drugs, medicaments and biological substances; Z88.2 Allergy status to sulfonamides; Z79.51 Long term (current) use of inhaled steroids; Z79.52 Long term (current) use of systemic steroids; Z98.51 Tubal ligation status
CPT/HCPCS: 36415; 71046; 80053; 81000; 83690; 84703; 85025

== ENCOUNTER 2019-12-19 12:38 | Emergency (ER) | payer BC, OTHER ==
[~2019-12-19] VITALS: Ht 157 cm; Wt 99.7 kg
[2019-12-19 12:40] VITALS: BP 125/90
--- OUTSIDE RECORDS SUMMARY | 2019-12-19 12:44 | XMS REPORT ---
Author Author Terrie Edwards Doctor Organization [facility] Address Unknown Phone Unavailable Care Team Providers Care Disassembler Product Name Role Phone Migration, Doctor Unavailable Unavailable PROBLEMS Type Condition ICD9-CM Code [id number] Code Onset Dates Condition S tatus SNOMED Code Problem Body mass index (BMI) of 35.0-35.9 in adult Z68.35 Active 089655352 Problem Acute non intractable tension-type headache G44.20 9 Active 527298545 Problem Asthma J45.909 Active 244404267 ALLERGIES No Information ENCOUNTERS Encounter Location Date Diagnosis [address] [address] Nov, Bronchitis J40 and Morbid obesity E66.[address] [address] Oct, Side pain R10.9 ; Mid sternal chest pain R07.89 and Costochondritis, acute M94.[address] [address] Sep, Right calf pain M79.661 and Morbid obesity E66.[address] [address] Sep, URI, acute J06.9 and BMI 40.0-44.9, adult Z68.[address] [address] Aug, Other obesity due to excess calories E66.09 ; Body mass index (BMI) of 35.0-35.9 in adult Z68.35 ; Acute non intractable tension-type headache G44.209 and BMI 40.0-44.9, adult Z68.41 [facility] [address] [facility] [id number] [address] [place] [address] Jul, [facility] [address] [facility] [id number] [address] [place] [address] May, [facility] [address] [id number] [address] [place] [address], [place] [address] Feb, [facility] [address] [id number] [address] [place] [address], [place] [address] Mar, Acute left-sided low back pa in without sciatica M54.5 [facility] [address] [id number] [address] [place] [address], [place] [address] 14 Nov, 2014 [facility] [address] [id number] [address] [place] [address], [place] [address] Nov, [facility] [address] [id number] [address] [place] [address], [place] [address] Aug, [facility] [address] [id number] [address] [place] [address], [place] [address] Aug, [facility] [address] [id number] [address] [place] [address], [place] [address] Jul, [facility] [address] [id number] [address] [place] [address], [place] [address] Jul, [facility] [address] [id number] [address] [place] [address], [place] [address] 14 Jul, 2012 [facility] [address] [id number] [address] [place] [address] 13 Jul, 2012 [facility] [address] [id number] [address] [place] [address], [place] [address] Jul, [facility] [address] [id number] [address] [place] [address] Jul, [facility] [address] [id number] [address] [place] [address], [place] [address] 15 Jun, 2012 [facility] [address] [id number] [address] [place] [address] 15 Jun, 2012 [facility] [address] [id number] [address] [place] [address] May, [facility] [address] [id number] [address] [place] [address] May, [facility] [address] [id number] [address] [place] [address] Sep, [facility] [address] [id number] [address] [place] [address] Sep, [facility] [address] [id number] [address] [place] [address] Sep, [facility] [address] [id number] [address] [place] [address] Sep, [facility] [address] [id number] [address] [place] [address] Jul, [facility] [address] [id number] [address] [place] [address] Jul, [facility] [address] [id number] [address] [place] [address] Jun, [facility] [address] [id number] [address] [place] [address] Jun, [facility] [address] [id number] [address] [place] [address] Jan, [facility] [address] [id number] [address] [place] [address] Aug, IMMUNIZATIONS No Known Immunizations SOCIAL HISTORY Never Assessed REASON FOR VISIT [facility] PLAN OF CARE VITAL SIGNS MEDICATIONS No Known Medications RESULTS No Results PROCEDURES No Known procedures INSTRUCTIONS MEDICATIONS ADMINISTERED No Known Medications MEDICAL (GENERAL) HISTORY Type Description Date Medical History Asthma Surgical History tubal 1998 Hospitalization History Kidney stones 1995
--- OUTSIDE RECORDS SUMMARY | 2019-12-19 12:44 | XMS REPORT ---
Author Author Terrie Edwards Doctor Organization [facility] Address Unknown Phone Unavailable Care Team Providers Care Trimmer Buffing Wheel Name Role Phone Migration, Doctor Unavailable Unavailable PROBLEMS Type Condition ICD9-CM Code DRV22-HB Code Onset Dates Condition S tatus SNOMED Code Problem Body mass index (BMI) of 35.0-35.9 in adult Z68.35 Active 484575617 Problem Acute non intractable tension-type headache G44.20 9 Active 233085095 Problem Asthma J45.909 Active 887346145 ALLERGIES No Information ENCOUNTERS Encounter Location Date Diagnosis [address] [address] Nov, Bronchitis J40 and Morbid obesity E66.[address] [address] Oct, Side pain R10.9 ; Mid sternal chest pain R07.89 and Costochondritis, acute M94.[address] [address] Sep, Right calf pain M79.661 and Morbid obesity E66.[address] [address] Sep, URI, acute J06.9 and BMI 40.0-44.9, adult Z68.[address] [address] Aug, Other obesity due to excess calories E66.09 ; Body mass index (BMI) of 35.0-35.9 in adult Z68.35 ; Acute non intractable tension-type headache G44.209 and BMI 40.0-44.9, adult Z68.41 [facility] [address] [facility] [id number] [address] [place] [phone] Jul, [facility] [address] [facility] [id number] [address] [place] [phone] May, [facility] [address] [id number] [address] [place] [address], [place] [address] Feb, [facility] [address] [id number] [address] [place] [address], [place] [address] Mar, Acute left-sided low back pa in without sciatica M54.5 [facility] [address] [id number] [address] [place] [address], [place] [address] 14 Nov, 2014 [facility] [address] [id number] [address] [place] [address], [place] [address] Nov, [facility] [address] [id number] [address] [place] [address], [place] [address] Aug, [facility] [address] [id number] [address] [place] [address], [place] [address] Aug, [facility] [address] [id number] [address] [place] [address], [place] [address] Jul, [facility] [address] [id number] [address] [place] [address], [place] [address] Jul, [facility] [address] [id number] [address] [place] [address], [place] [address] 14 Jul, 2012 [facility] [address] [id number] [address] [place] [phone] 13 Jul, 2012 [facility] [address] [id number] [address] [place] [address], [place] [address] Jul, [facility] [address] [id number] [address] [place] [phone] Jul, [facility] [address] [id number] [address] [place] [address], [place] [address] 15 Jun, 2012 [facility] [address] [id number] [address] [place] [phone] 15 Jun, 2012 [facility] [address] [id number] [address] [place] [phone] May, [facility] [address] [id number] [address] [place] [phone] May, [facility] [address] [id number] [address] [place] [phone] Sep, [facility] [address] [id number] [address] [place] [phone] Sep, [facility] [address] [id number] [address] [place] [phone] Sep, [facility] [address] [id number] [address] [place] [phone] Sep, [facility] [address] [id number] [address] [place] [phone] Jul, [facility] [address] [id number] [address] [place] [phone] Jul, [facility] [address] [id number] [address] [place] [phone] Jun, [facility] [address] [id number] [address] [place] [phone] Jun, [facility] [address] [id number] [address] [place] [phone] Jan, [facility] [address] [id number] [address] [place] [phone] Aug, IMMUNIZATIONS No Known Immunizations SOCIAL HISTORY Never Assessed REASON FOR VISIT [facility] PLAN OF CARE VITAL SIGNS MEDICATIONS No Known Medications RESULTS No Results PROCEDURES No Known procedures INSTRUCTIONS MEDICATIONS ADMINISTERED No Known Medications MEDICAL (GENERAL) HISTORY Type Description Date Medical History Asthma Surgical History tubal 1998 Hospitalization History Kidney stones 1995
--- OUTSIDE RECORDS SUMMARY | 2019-12-19 12:44 | XMS REPORT ---
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 Role Phone Migration, Doctor Unavailable Unavailable PROBLEMS Type Condition ICD9-CM Code LJK68-PE Code Onset Dates Condition S tatus SNOMED Code Problem Body mass index (BMI) of 35.0-35.9 in adult Z68.35 Active 499802998 Problem Acute non intractable tension-type headache G44.20 9 Active 480864225 Problem Asthma J45.909 Active 805554587 ALLERGIES No Information ENCOUNTERS Encounter Location Date Diagnosis [address] [address] Nov, Bronchitis J40 and Morbid obesity E66.[address] [address] Oct, Side pain R10.9 ; Mid sternal chest pain R07.89 and Costochondritis, acute M94.[address] [address] Sep, Right calf pain M79.661 and Morbid obesity E66.[address] [address] Sep, URI, acute J06.9 and BMI 40.0-44.9, adult Z68.[address] [address] Aug, Other obesity due to excess calories E66.09 ; Body mass index (BMI) of 35.0-35.9 in adult Z68.35 ; Acute non intractable tension-type headache G44.209 and BMI 40.0-44.9, adult Z68.41 [facility] [address] [facility] [id number] [address] [place] [phone] Jul, [facility] [address] [facility] [id number] [address] [place] [phone] May, [facility] [address] [id number] [address] [place] [address], [place] [address] Feb, [facility] [address] [id number] [address] [place] [address], [place] [address] Mar, Acute left-sided low back pa in without sciatica M54.5 [facility] [address] [id number] [address] [place] [address], [place] [address] 14 Nov, 2014 [facility] [address] [id number] [address] [place] [address], [place] [address] Nov, [facility] [address] [id number] [address] [place] [address], [place] [address] Aug, [facility] [address] [id number] [address] [place] [address], [place] [address] Aug, [facility] [address] [id number] [address] [place] [address], [place] [address] Jul, [facility] [address] [id number] [address] [place] [address], [place] [address] Jul, [facility] [address] [id number] [address] [place] [address], [place] [address] 14 Jul, 2012 [facility] [address] [id number] [address] [place] [phone] 13 Jul, 2012 [facility] [address] [id number] [address] [place] [address], [place] [address] Jul, [facility] [address] [id number] [address] [place] [phone] Jul, [facility] [address] [id number] [address] [place] [address], [place] [address] 15 Jun, 2012 [facility] [address] [id number] [address] [place] [phone] 15 Jun, 2012 [facility] [address] [id number] [address] [place] [phone] May, [facility] [address] [id number] [address] [place] [phone] May, [facility] [address] [id number] [address] [place] [phone] Sep, [facility] [address] [id number] [address] [place] [phone] Sep, [facility] [address] [id number] [address] [place] [phone] Sep, [facility] [address] [id number] [address] [place] [phone] Sep, [facility] [address] [id number] [address] [place] [phone] Jul, [facility] [address] [id number] [address] [place] [phone] Jul, [facility] [address] [id number] [address] [place] [phone] Jun, [facility] [address] [id number] [address] [place] [phone] Jun, [facility] [address] [id number] [address] [place] [phone] Jan, [facility] [address] [id number] [address] [place] [phone] Aug, IMMUNIZATIONS No Known Immunizations SOCIAL HISTORY Never Assessed REASON FOR VISIT [facility] PLAN OF CARE VITAL SIGNS MEDICATIONS No Known Medications RESULTS No Results PROCEDURES No Known procedures INSTRUCTIONS MEDICATIONS ADMINISTERED No Known Medications MEDICAL (GENERAL) HISTORY Type Description Date Medical History Asthma Surgical History tubal 1998 Hospitalization History Kidney stones 1995
--- OUTSIDE RECORDS SUMMARY | 2019-12-19 12:44 | XMS REPORT ---
Author Author Terrie Edwards Doctor Organization [facility] Address Unknown Phone Unavailable Care Team Providers Care Pharmacy Salesperson Name Role Phone Migration, Doctor Unavailable Unavailable PROBLEMS Type Condition ICD9-CM Code [id number] Code Onset Dates Condition S tatus SNOMED Code Problem Body mass index (BMI) of 35.0-35.9 in adult Z68.35 Active 759639873 Problem Acute non intractable tension-type headache G44.20 9 Active 083872964 Problem Asthma J45.909 Active 349020030 ALLERGIES No Information ENCOUNTERS Encounter Location Date Diagnosis [address] [address] Oct, Side pain R10.9 ; Mid sternal chest pain R07.89 and Costochondritis, acute M94.[address] [address] 28 Sep, 2018 Right calf pain M79.661 and Morbid obesity E66.[address] [address] 08 Sep, 2018 URI, acute J06.9 and BMI 40.0-44.9, adult Z68.[address] [address] Aug, Other obesity due to excess calories E66.09 ; Body mass index (BMI) of 35.0-35.9 in adult Z68.35 ; Acute non intractable tension-type headache G44.209 and BMI 40.0-44.9, adult Z68.41 [facility] [address] [facility] [id number] [address] [place] [phone] Jul, [facility] [address] [place] [id number] [address] [place] [phone] May, [facility] [address] [facility] [id number] [address] [place] [phone] Feb, [facility] [address] [id number] [address] [place] [phone] Mar, Acute left-sided low back pa in without sciatica M54.5 [facility] [address] [id number] [address] [place] [address], [place] [address] 14 Nov, 2014 [facility] [address] [id number] [address] [place] [phone] Nov, [facility] [address] [id number] [address] [place] [address], [place] [address] Aug, [facility] [address] [id number] [address] [place] [address], [place] [address] Aug, [facility] [address] [id number] [address] [place] [address], [place] [address] Jul, [facility] [address] [id number] [address] [place] [address], [place] [address] Jul, [facility] [address] [id number] [address] [place] [phone] 14 Jul, 2012 [facility] [address] [id number] [address] [place] [address], [place] [address] Jul, [facility] [address] [id number] [address] [place] [phone] Jul, [facility] [address] [id number] [address] [place] [address], [place] [address] Jul, [facility] [address] [id number] [address] [place] [phone] 15 Jun, 2012 [facility] [address] [id number] [address] [place] [phone] 15 Jun, 2012 [facility] [address] [id number] [address] [place] [phone] May, [facility] [address] [id number] [address] [place] [phone] May, [facility] [address] [id number] [address] [place] [phone] Sep, [facility] [address] [id number] [address] [place] [phone] Sep, [facility] [address] [id number] [address] [place] [phone] Sep, [facility] [address] [id number] [address] [place] [phone] Sep, [facility] [address] [id number] [address] [place] [phone] Jul, [facility] [address] [id number] [address] [place] [phone] Jul, [facility] [address] [id number] [address] [place] [phone] Jun, [facility] [address] [id number] [address] [place] [phone] Jun, [facility] [address] [id number] [address] [place] [phone] Jan, [facility] [address] [id number] [address] [place] [phone] Aug, IMMUNIZATIONS No Known Immunizations SOCIAL HISTORY Never Assessed REASON FOR VISIT [facility] PLAN OF CARE VITAL SIGNS MEDICATIONS Medication Instructions Dosage Frequency Start Date End Date Duration S tatus Albuterol take 2 puffs by Inhalation route every 6 hoursPRN May, Active Flagyl 500 mg 1 tablet by Oral route 2 times per day f or 7 days Jul, Active Acyclovir 400 mg 1 tablet by Oral route 3 times per day Jul, Active RESULTS No Results PROCEDURES No Known procedures INSTRUCTIONS MEDICATIONS ADMINISTERED No Known Medications MEDICAL (GENERAL) HISTORY Type Description Date Medical History Asthma Surgical History tubal 1998 Hospitalization History Kidney stones 1996
--- OUTSIDE RECORDS SUMMARY | 2019-12-19 12:44 | XMS REPORT ---
Author Author Terrie Edwards Doctor Organization [facility] Address Unknown Phone Unavailable Care Team Providers Care Talend Developer Name Role Phone Migration, Doctor Unavailable Unavailable PROBLEMS Type Condition ICD9-CM Code SFR07-KE Code Onset Dates Condition S tatus SNOMED Code Problem Body mass index (BMI) of 35.0-35.9 in adult Z68.35 Active 506536808 Problem Acute non intractable tension-type headache G44.20 9 Active 897322442 Problem Asthma J45.909 Active 940442561 ALLERGIES No Information ENCOUNTERS Encounter Location Date Diagnosis [address] [address] Nov, Bronchitis J40 and Morbid obesity E66.[address] [address] Oct, Side pain R10.9 ; Mid sternal chest pain R07.89 and Costochondritis, acute M94.[address] [address] Sep, Right calf pain M79.661 and Morbid obesity E66.[address] [address] Sep, URI, acute J06.9 and BMI 40.0-44.9, adult Z68.[address] [address] Aug, Other obesity due to excess calories E66.09 ; Body mass index (BMI) of 35.0-35.9 in adult Z68.35 ; Acute non intractable tension-type headache G44.209 and BMI 40.0-44.9, adult Z68.41 [facility] [address] [facility] [id number] [address] [place] [phone] Jul, [facility] [address] [facility] [id number] [address] [place] [phone] May, [facility] [address] [id number] [address] [place] [address], [place] [address] Feb, [facility] [address] [id number] [address] [place] [address], [place] [address] Mar, Acute left-sided low back pa in without sciatica M54.5 [facility] [address] [id number] [address] [place] [address], [place] [address] 14 Nov, 2014 [facility] [address] [id number] [address] [place] [address], [place] [address] Nov, [facility] [address] [id number] [address] [place] [address], [place] [address] Aug, [facility] [address] [id number] [address] [place] [address], [place] [address] Aug, [facility] [address] [id number] [address] [place] [address], [place] [address] Jul, [facility] [address] [id number] [address] [place] [address], [place] [address] Jul, [facility] [address] [id number] [address] [place] [address], [place] [address] 14 Jul, 2012 [facility] [address] [id number] [address] [place] [phone] 13 Jul, 2012 [facility] [address] [id number] [address] [place] [address], [place] [address] Jul, [facility] [address] [id number] [address] [place] [phone] Jul, [facility] [address] [id number] [address] [place] [address], [place] [address] 15 Jun, 2012 [facility] [address] [id number] [address] [place] [phone] 15 Jun, 2012 [facility] [address] [id number] [address] [place] [phone] May, [facility] [address] [id number] [address] [place] [phone] May, [facility] [address] [id number] [address] [place] [phone] Sep, [facility] [address] [id number] [address] [place] [phone] Sep, [facility] [address] [id number] [address] [place] [phone] Sep, [facility] [address] [id number] [address] [place] [phone] Sep, [facility] [address] [id number] [address] [place] [phone] Jul, [facility] [address] [id number] [address] [place] [phone] Jul, [facility] [address] [id number] [address] [place] [phone] Jun, [facility] [address] [id number] [address] [place] [phone] Jun, [facility] [address] [id number] [address] [place] [phone] Jan, [facility] [address] [id number] [address] [place] [phone] Aug, IMMUNIZATIONS No Known Immunizations SOCIAL HISTORY Never Assessed REASON FOR VISIT [facility] [place] PLAN OF CARE VITAL SIGNS MEDICATIONS No Known Medications RESULTS No Results PROCEDURES No Known procedures INSTRUCTIONS MEDICATIONS ADMINISTERED No Known Medications MEDICAL (GENERAL) HISTORY Type Description Date Medical History Asthma Surgical History tubal 1998 Hospitalization History Kidney stones 1995
--- OUTSIDE RECORDS SUMMARY | 2019-12-19 12:44 | XMS REPORT ---
Author Author Terrie Morgan Organization [facility] [place] Address [address] [place] [address] Care Team Providers Care Camp Cook Name Role Phone TITO Morgan Unavailable PROBLEMS Type Condition ICD9-CM Code TML42-VL Code Onset Dates Condition S tatus SNOMED Code Problem Body mass index (BMI) of 35.0-35.9 in adult Z68.35 Active 909334901 Problem Acute non intractable tension-type headache G44.20 9 Active 901536834 Problem Asthma J45.909 Active [id number] ALLERGIES No Information ENCOUNTERS Encounter Location Date Diagnosis [place] [address] Nov, Bronchitis J40 and Morbid obesity E66.01 [place] [id number] [place] [address] Oct, Side pain R10.9 ; Mid sternal chest pain R07.89 and Costochondritis, acute M94.0 [place] [id number] [place], [place] [address] 2-[address] 28 Sep, 2018 Right calf pain M79.661 and Morbid obesity E66.01 [place] [id number] [place], [place] [address] 2-[address] 08 Sep, 2018 URI, acute J06.9 and BMI 40.0-44.9, adult Z68.41 [facility] [address] [place] [address] 16 Aug, 2018 Other obesity due to excess calories E66.09 ; Body mass index (BMI) of 35.0-35.9 in adult Z68.35 ; Acute non intractable tension-type headache G44.209 and BMI 40.0-44.9, adult Z68.41 [facility] [place] [address] [id number] [address] [place] [address], [place] [address] 30 Jul, 2018 [facility] [place] [address] [id number] [address] [place] [address], [place] [address] May, [facility] [place] [address] [id number] [address] [place] [address], [place] [address] Feb, [facility] [address] [id number] [address] [place] [address], [place] [address] Mar, Acute left-sided low back pa in without sciatica M54.5 [facility] [place] [address] [id number] [address] [place] [address], [place] [address] Nov, [facility] [place] [address] [id number] [address] [place] [phone] Nov, [facility] [place] [address] [id number] [address] [place] [phone] Aug, [facility] [place] [address] [id number] [address] [place] [phone] Aug, [facility] [place] [address] [id number] [address] [place] [address], [place] [address] Jul, [facility] [place] [address] [id number] [address] [place] [phone] Jul, [facility] [place] [address] [id number] [address] [place] [address], [place] [address] 14 Jul, 2012 [facility] [place] [address] [id number] [address] [place] [phone] 13 Jul, 2012 [facility] [place] [address] [id number] [address] [place] [phone] 10 Jul, 2012 [facility] [place] [address] [id number] [address] [place] [phone] 10 Jul, 2012 [facility] [place] [address] [id number] [address] [place] [phone] 15 Jun, 2012 [facility] [place] [address] [id number] [address] [place] [phone] Jun, [facility] [place] [address] [id number] [address] [place] [phone] May, [facility] [place] [address] [id number] [address] [place] [phone] May, [facility] [place] [address] [id number] [address] [place] [phone] Sep, [facility] [place] [address] [id number] [address] [place] [phone] Sep, [facility] [place] [address] [id number] [address] [place] [phone] Sep, [facility] [place] [address] [id number] [address] [place] [phone] Sep, [facility] [place] [address] [id number] [address] [place] [phone] Jul, [facility] [place] [address] [id number] [address] [place] [phone] Jul, [facility] [place] [address] [id number] [address] [place] [phone] Jun, [facility] [place] [address] [id number] [address] [place] [phone] Jun, [facility] [place] [address] [id number] [address] [place] [phone] Jan, [facility] [place] [address] [id number] [address] [place] [phone] Aug, IMMUNIZATIONS No Known Immunizations SOCIAL HISTORY Never Assessed REASON FOR VISIT PLAN OF CARE VITAL SIGNS MEDICATIONS No Known Medications RESULTS No Results PROCEDURES No Known procedures INSTRUCTIONS MEDICATIONS ADMINISTERED No Known Medications MEDICAL (GENERAL) HISTORY Type Description Date Medical History Asthma Surgical History tubal 1998 Hospitalization History Kidney stones 1996
--- OUTSIDE RECORDS SUMMARY | 2019-12-19 12:45 | XMS REPORT | Continuity of Care Document ---
Author Organization Unknown Address Unknown Phone Unavailable Allergies Active Description Code Type Severity Reaction Onset Reported/Identified Relationship to Patient Clinical Status Yes Demerol Drug Allergy 09/07/2010 Yes Stadol Drug Allergy 09/07/2010 Yes sulfa drug Drug Allergy 09/07/2010 Yes Vicodin Drug Allergy 06/22/2011 Yes No Known Drug Allergies [id number] Drug Allergy Unknown N/A 08/22/2016 Yes butorphanol [id number] Drug Aller gy Unknown VOMITING 10/12/2017 Yes meperidine [id number] Drug Allerg y Unknown VOMITING 10/12/2017 Yes SULFA SULFA Unknown VOMITING 10/12/2017 Medications There is no data. Problems Date Dx Coded Attending Type Code Diagnosis Diagnosed By 09/07/2010 MARYLOU AZAR APRN 493.90 ASTHMA 09/07/2010 493.90 ASTHMA 02/05/2011 MARYLOU AZAR APRN 599.0 Urinary Tract Infection Site Not Specified 02/05/2011 599.0 Urin pineda Tract Infection Site Not Specified 06/22/2011 MARYLOU AZAR APRN 626.9 Unspecified Disorders Of Menstruation An d Other Abnormal Bleeding From Female Genital Tract 06/22/2011 MARYLOU AZAR APRN 788.1 Dysuria 06/22/2011 626.9 Unsp ecified Disorders Of Menstruation And Other Abnormal Bleeding From Female Genital Tract 06/22/2011 788.1 Dysuria 09/21/2011 MARYLOU AZAR APRN 786.2 COUGH 09/21/2011 786.2 COUGH 05/29/2012 MARYLOU AZAR APRN 786.07 WHEEZING 05/29/2012 786.07 WHE EZING 07/28/2012 MARYLOU AZAR APRN 053.9 HERPES ZOSTER WITHOUT COMPLICATION 07/28/2012 MARYLOU AZAR APRN 616.10 VAGINITIS AND VULVOVAGINITIS UNSPECIFIED 07/28/2012 MARYLOU AZAR APRN S V76.10 BREAST CANCER SCREENING 07/28/2012 MARYLOU AZAR APRN V76.2 CERVICAL CANCER SCREENING (PAP SMEAR) 08/22/2016 LEAH MERRITT APRN Ot H66.91 OTITIS MEDIA, UNSPECIFIED, RIGHT EAR 08/22/2016 LEAH MERRITT APRN Ot J06 .9 ACUTE UPPER RESPIRATORY INFECTION, UNSPE 08/22/2016 LEAH MERRITT GEOMORPHOLOGIST Ot R05 COUGH 08/23/2016 LEAH MERRITT GEOMORPHOLOGIST Ot H66.91 OTITIS MEDIA, UNSPECIFIED, RIGHT EAR 08/23/2016 LEAH MERRITT APRN Ot J06 .9 ACUTE UPPER RESPIRATORY INFECTION, UNSPE 08/23/2016 LEAH MERRITT APRN Ot R05 COUGH 10/12/2017 LEAH MERRITT APRN Ot B34 .9 VIRAL INFECTION, UNSPECIFIED 10/12/2017 LEAH MERRITT APRN Ot J45.909 UNSPECIFIED ASTHMA, UNCOMPLICATED 10/12/2017 LEAH MERRITT APRN Ot R07.89 OTHER CHEST PAIN 10/12/2017 LEAH MERRITT APRN Ot Z88 .2 ALLERGY STATUS TO SULFONAMIDES STATUS 10/12/2017 LEAH MERRITT APRN Ot Z88 .5 ALLERGY STATUS TO NARCOTIC AGENT STATUS 10/12/2017 LEAH MERRITT APRN Ot Z88 .6 ALLERGY STATUS TO ANALGESIC AGENT STATUS 10/12/2017 LEAH MERRITT APRN Ot Z98.51 TUBAL LIGATION STATUS 10/14/2017 LEAH MERRITT APRN Ot B34 .9 VIRAL INFECTION, UNSPECIFIED 10/14/2017 LEAH MERRITT APRN Ot J45.909 UNSPECIFIED ASTHMA, UNCOMPLICATED 10/14/2017 LEAH MERRITT GEOMORPHOLOGIST Ot R07.89 OTHER CHEST PAIN 10/14/2017 LEAH MERRITT GEOMORPHOLOGIST Ot Z88 .2 ALLERGY STATUS TO SULFONAMIDES STATUS 10/14/2017 LEAH MERRITT GEOMORPHOLOGIST Ot Z88 .5 ALLERGY STATUS TO NARCOTIC AGENT STATUS 10/14/2017 LEAH MERRITT GEOMORPHOLOGIST Ot Z88 .6 ALLERGY STATUS TO ANALGESIC AGENT STATUS 10/14/2017 LEAH MERRITT GEOMORPHOLOGIST Ot Z98.51 TUBAL LIGATION STATUS 10/14/2017 FREDDIE BRUNO PASCUAL J Ot J45.901 UNSPECIFIED ASTHMA WITH (ACUTE) EXACERBA 10/14/2017 ANGIE FRAZIER MDUS J Ot R06. 02 SHORTNESS OF BREATH 10/14/2017 ANGIE FRAZIER MDUS J Ot R51 HEADACHE 10/14/2017 ANGIE FRAZIER MDUS J Ot Z88. 2 ALLERGY STATUS TO SULFONAMIDES STATUS 10/14/2017 ANGIE FRAZIER MDUS J Ot Z88. 5 ALLERGY STATUS TO NARCOTIC AGENT STATUS 10/14/2017 FREDDIE BRUNO PASCUAL J Ot Z88. 6 ALLERGY STATUS TO ANALGESIC AGENT STATUS 10/14/2017 ANGIE FRAZIER MDUS J Ot Z98. 51 TUBAL LIGATION STATUS 10/15/2017 ANGIE FRAZIER MDUS J Ot J45.901 UNSPECIFIED ASTHMA WITH (ACUTE) EXACERBA 10/15/2017 ANGIE FRAZIER MDUS J Ot R06. 02 SHORTNESS OF BREATH 10/15/2017 ANGIE FRAZIER MDUS J Ot R51 HEADACHE 10/15/2017 ANGIE FRAZIER MDUS J Ot Z88. 2 ALLERGY STATUS TO SULFONAMIDES STATUS 10/15/2017 ANGIE FRAZIER MDUS J Ot Z88. 5 ALLERGY STATUS TO NARCOTIC AGENT STATUS 10/15/2017 ANGIE FRAZIER MDUS J Ot Z88. 6 ALLERGY STATUS TO ANALGESIC AGENT STATUS 10/15/2017 ANGIE FRAZIER MDUS J Ot Z98. 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0 Blood erythrocytes automated count (number/volume) 4.82 10*6/uL 4.35-5.85 Venous blood hemoglobin measurement (mass/volume) 13.4 g/dL 11.5-16.0 Blood hematocrit (volume fraction) 39 % 35-52 Automated erythrocyte mean corpuscular volume 81 [ foz_us] 80-99 Automated erythrocyte mean corpuscular h emoglobin (mass per erythrocyte) 28 pg 25-34 Automated erythrocyte mean corpuscular h emoglobin concentration measurement (mass/volume) 34 g/dL 32-36 Automated erythrocyte distribution width ratio 13. 8 % 10.0- 14.5 Automated blood platelet count (count/volume) 252 10*3/uL [...] 10*3 1.0-4.0 Blood monocytes automated count (number/volume) 0. 6 10*3 0.0-1.0 Automated eosinophil count 0.2 10*3/uL 0 .0-0.3 Automated blood basophil count (count/volume) 0.0 10*3/uL 0.0-0.1 Whole blood basic metabolic panel - 09/20 12/04 19:30 Serum or plasma sodium measurement (moles/volume) 140 mmol/L 135-145 Serum or plasma potassium measurement (moles/volume) 4.0 mmol/L 3.6-5.0 Serum or plasma chloride measurement (moles/volume) 110 mmol/L 98-107 Carbon dioxide 21 mmol/L 21-32 Serum or plasma anion gap determination (moles/volume) 9 mmol/L 5-14 Serum or plasma urea nitrogen measurement (mass/volume ) 9 mg/dL 7-18 Serum or plasma creatinine measurement (mass/volume) 0.78 mg/dL 0.60-1.30 Serum or plasma urea nitrogen/creatinine mass ratio 12 NRG Serum or plasma creatinine measurement w ith calculation of estimated glomerular filtration rate > NRG Serum or plasma glucose measurement (mass/volume) 122 mg/dL 70-105 Serum or plasma calcium measurement (mass/volume) 9.1 mg/dL 8.5-10.1 Influenza virus A and B antigen detectio n - 10/12/17 19:38 FLU RESULT NEGATIVE FOR INFLUENZA A AND B ANTIGENS BY [place] NRG Complete urinalysis with reflex to cultu re - 10/14/17 15:15 Urine color determination YELLOW NRG Urine clarity determination SLIGHTLY CLOUDY NRG Urine pH measurement by test strip 7 5-9 Specific gravity of urine by test strip 1.005 1.016-1.022 Urine protein assay by test strip, semi-quantitative NEGATIVE NEGATIVE Urine glucose detection by automated test strip NE GATIVE NEGATIVE Erythrocytes detection in urine sediment by light micr oscopy 2+ NEGATIVE Urine ketones detection by automated test strip NE GATIVE NEGATIVE Urine nitrite detection by test strip NEGATIVE NEGATIVE Urine total bilirubin detection by test strip NEGA TIVE NEGATIVE Urine urobilinogen measurement by automated test strip (mass/volume) NORMAL NORMAL Urine leukocyte esterase detection by dipstick NEG ATIVE NEGATIVE Automated urine sediment erythrocyte cou nt by microscopy (number/high power field) [HPF] NRG Automated urine sediment leukocyte count by microscopy (number/high power field) NONE NRG Bacteria detection in urine sediment by light microsco py NEGATIVE NRG Squamous epithelial cells detection in u rine sediment by light microscopy 10-25 NRG Crystals detection in urine sediment by light microsco py NONE NRG Casts detection in urine sediment by light microscopy NONE NRG Mucus detection in urine sediment by light microscopy NEGATIVE NRG Complete urinalysis with reflex to culture NO NRG Urine beta human chorionic gonadotropin (hCG) measurement - 10/14/17 15:15 Urine beta human chorionic gonadotropin (hCG) measurem ent NEGATIVE NEGATIVE Complete blood count (CBC) with automate d white blood cell (WBC) differential - 10/14/17 15:55 Blood leukocytes automated count (number/volume) 5.9 10*3/uL 4.3-11.0 Blood erythrocytes automated count (number/volume) 4.95 10*6/uL 4.35-5.85 Venous blood hemoglobin measurement (mass/volume) 13.7 g/dL 11.5-16.0 Blood hematocrit (volume fraction) 40 % 35-52 Automated erythrocyte mean corpuscular volume 81 [ foz_us] 80-99 Automated erythrocyte mean corpuscular h emoglobin (mass per erythrocyte) 28 pg 25-34 Automated erythrocyte mean corpuscular h emoglobin concentration measurement (mass/volume) 34 g/dL 32-36 Automated erythrocyte distribution width ratio 13. 8 % 10.0- 14.5 Automated blood platelet count (count/volume) 210 10*3/uL [...] 10*3 1.0-4.0 Blood monocytes automated count (number/volume) 0. 5 10*3 0.0-1.0 Automated eosinophil count 0.1 10*3/uL 0 .0-0.3 Automated blood basophil count (count/volume) 0.0 10*3/uL 0.0-0.1 Erythrocyte sedimentation rate by milton gren method - 10/14/17 15:55 Erythrocyte sedimentation rate by westergren method 17 mm 0- 20 Comprehensive metabolic panel - 10/14/17 15:55 Serum or plasma sodium measurement (moles/volume) 140 mmol/L 135-145 Serum or plasma potassium measurement (moles/volume) 3.6 mmol/L 3.6-5.0 Serum or plasma chloride measurement (moles/volume) 109 mmol/L 98-107 Carbon dioxide 22 mmol/L 21-32 Serum or plasma anion gap determination (moles/volume) 9 mmol/L 5-14 Serum or plasma urea nitrogen measurement (mass/volume ) 7 mg/dL 7-18 Serum or plasma creatinine measurement (mass/volume) 0.77 mg/dL 0.60-1.30 Serum or plasma urea nitrogen/creatinine mass ratio 9 NRG Serum or plasma creatinine measurement w ith calculation of estimated glomerular filtration rate > NRG Serum or plasma glucose measurement (mass/volume) 113 mg/dL 70-105 Serum or plasma calcium measurement (mass/volume) 8.9 mg/dL 8.5-10.1 Serum or plasma total bilirubin measurement (mass/volu me) 0.4 mg/dL 0.1-1.0 Serum or plasma alkaline phosphatase han surement (enzymatic activity/volume) 89 U/L 40-136 Serum or plasma aspartate aminotransfera se measurement (enzymatic activity/volume) 12 U/L 5-34 Serum or plasma alanine aminotransferase measurement (enzymatic activity/volume) 8 U/L 0-55 Serum or plasma protein measurement (mass/volume) 7.1 g/dL 6.4-8.2 Serum or plasma albumin measurement (mass/volume) 4.0 g/dL 3.2-4.5 Magnesium - 10/14/17 15:55 Magnesium 1.9 mg/dL 1.8-2.4 Serum or plasma C reactive protein measu rement (mass/volume) - 10/14/17 15:55 Serum or plasma C reactive protein measurement (mass/v olume) 0.85 mg/dL 0.00-0.50 Influenza virus A and B antigen detectio n - 10/14/17 17:15 FLU RESULT NEGATIVE FOR INFLUENZA A AND B ANTIGENS BY [facility] - 10/16/18 09:43 GLUCOSE 95 mg/dL 65-99 UREA NITROGEN (BUN) 12 mg/dL 7-25 CREATININE 0.68 mg/dL 0.50-1.10 eGFR NON-AFR. C[facility] 106 mL/min/1.73m2 > OR = 60 eGFR 123 mL/min/1.73m2 > OR = 60 BUN/CREATININE RATIO NOT APPLICABLE (calc) 6-22 SODIUM 139 mmol/L 135-146 POTASSIUM 4.2 mmol/L 3.5-5.3 CHLORIDE 107 mmol/L 98-110 CARBON DIOXIDE 26 mmol/L 20-32 CALCIUM 9.2 mg/dL 8.6-10.2 PROTEIN, TOTAL 6.7 g/dL 6.1-8.1 ALBUMIN 4.0 g/dL 3.6-5.1 GLOBULIN 2.7 g/dL (calc) 1.9-3.7 ALBUMIN/GLOBULIN RATIO 1.5 (calc) 1.0-2. 5 BILIRUBIN, TOTAL 0.5 mg/dL 0.2-1.2 ALKALINE PHOSPHATASE 95 U/L 33-115 AST 9 U/L 10-30 ALT 7 U/L 6-29 MAGNESIUM SERUM - 10/16/18 09:43 MAGNESIUM 2.0 mg/dL 1.5-2.5 Complete blood count (CBC) with automate d white blood cell (WBC) differential - 10/21/18 13:20 Blood leukocytes automated count (number/volume) 9.4 10*3/uL 4.3-11.0 Blood erythrocytes automated count (number/volume) 5.06 10*6/uL 4.35-5.85 Venous blood hemoglobin measurement (mass/volume) 13.6 g/dL 11.5-16.0 Blood hematocrit (volume fraction) 41 % 35-52 Automated erythrocyte mean corpuscular volume 82 [ foz_us] 80-99 Automated erythrocyte mean corpuscular h emoglobin (mass per erythrocyte) 27 pg 25-34 Automated erythrocyte mean corpuscular h emoglobin concentration measurement (mass/volume) 33 g/dL 32-36 Automated erythrocyte distribution width ratio 13. 8 % 10.0- 14.5 Automated blood platelet count (count/volume) 247 10*3/uL 130-400 Automated blood platelet mean volume measurement 9.0 [foz_us] 7.4-10.4 Automated blood neutrophils/100 leukocytes 72 % 42-75 Automated blood lymphocytes/100 leukocytes 207 % 12-44 Blood monocytes/100 leukocytes 6 % 0-12 Automated blood eosinophils/100 leukocytes 1 % 0-10 Automated blood basophils/100 leukocytes 0 % 0-10 Blood neutrophils automated count (number/volume) 6.8 10*3 1.8-7.8 Blood lymphocytes automated count (number/volume) 2.0 10*3 1.0-4.0 Blood monocytes automated count (number/volume) 0. 6 10*3 0.0-1.0 Automated eosinophil count 0.1 10*3/uL 0 .0-0.3 Automated blood basophil count (count/volume) 0.0 10*3/uL 0.0-0.1 Comprehensive metabolic panel - 10/21/18 13:20 Serum or plasma sodium measurement (moles/volume) 140 mmol/L 135-145 Serum or plasma potassium measurement (moles/volume) 3.8 mmol/L 3.6-5.0 Serum or plasma chloride measurement (moles/volume) 104 mmol/L 98-107 Carbon dioxide 20 mmol/L 21-32 Serum or plasma anion gap determination (moles/volume) 16 mmol/L 5-14 Serum or plasma urea nitrogen measurement (mass/volume ) 11 mg/dL 7-18 Serum or plasma creatinine measurement (mass/volume) 0.74 mg/dL 0.60-1.30 Serum or plasma urea nitrogen/creatinine mass ratio 15 NRG Serum or plasma creatinine measurement w ith calculation of estimated glomerular filtration rate > NRG Serum or plasma glucose measurement (mass/volume) 119 mg/dL 70-105 Serum or plasma calcium measurement (mass/volume) 9.2 mg/dL 8.5-10.1 Serum or plasma total bilirubin measurement (mass/volu me) 0.4 mg/dL 0.1-1.0 Serum or plasma alkaline phosphatase han surement (enzymatic activity/volume) 106 U/L 40-136 Serum or plasma aspartate aminotransfera se measurement (enzymatic activity/volume) 10 U/L 5-34 Serum or plasma alanine aminotransferase measurement (enzymatic activity/volume) 8 U/L 0-55 Serum or plasma protein measurement (mass/volume) 7.3 g/dL 6.4-8.2 Serum or plasma albumin measurement (mass/volume) 4.0 g/dL 3.2-4.5 CALCIUM CORRECTED 9.2 mg/dL 8.5-10.1 Lipase - 10/21/18 13:20 Lipase 62 U/L 8-78 Serum or plasma choriogonadotropin (preg keegan test) detection - 10/21/18 13:20 Serum or plasma choriogonadotropin ( test) de tection NEGATIVE NEGATIVE Complete urinalysis with reflex to cultu re - 10/21/18 13:52 Urine color determination YELLOW NRG Urine clarity determination CLEAR NR G Urine pH measurement by test strip 6 5-9 Specific gravity of urine by test strip >= 1.016-1.022 Urine protein assay by test strip, semi-quantitative 1+ NEGATIVE Urine glucose detection by automated test strip 1+ NEGATIVE Erythrocytes detection in urine sediment by light micr oscopy TRACE-I NEGATIVE Urine ketones detection by automated test strip NE GATIVE NEGATIVE Urine nitrite detection by test strip NEGATIVE NEGATIVE Urine total bilirubin detection by test strip NEGA TIVE NEGATIVE Urine urobilinogen measurement by automated test strip (mass/volume) 0.2 mg/dL NORMAL Urine leukocyte esterase detection by dipstick NEG ATIVE NEGATIVE Automated urine sediment erythrocyte cou nt by microscopy (number/high power field) [HPF] NRG Automated urine sediment leukocyte count by microscopy (number/high power field) NONE NRG Bacteria detection in urine sediment by light microsco py NEGATIVE NRG Squamous epithelial cells detection in u rine sediment by light microscopy >50 NRG Crystals detection in urine sediment by light microsco py NONE NRG Casts detection in urine sediment by light microscopy NONE NRG Mucus detection in urine sediment by light microscopy LARGE NRG Complete urinalysis with reflex to culture NO NRG Encounters ACCT No. Visit Date/Time Discharge Status Pt. Type Provider Facility Loc./Unit Complaint [id number] 11/28/2018 16:40:00 11/28/2018 23:59: 59 CLS Outpatient VITA GRAY [facility] [id number] 10/16/2018 09:20:00 Document Registration [id number] 10/29/2019 15:38:00 10/29/2019 23:59 :00 DIS Outpatient Vita Gray [id number] 10/21/2018 12:48:00 019 14:50:00 DIS Emergency NADIA WELCH MD [facility] ER FS LT SIDE PAIN [id number] 10/14/2017 13:14:00 018 18:08:00 DIS Emergency PASCUAL FRAZIER MD [facility] ER BACK PAIN,MACIAS [id number] 10/12/2017 19:03:00 018 21:00:00 DIS Emergency LEAH MERRITT APRN [facility] ER CP, BACK PAIN,COUGH [id number] 08/22/2016 12:08:00 017 13:54:00 DIS Emergency LEAH MERRITT APRN [facility] ER COUGH/CONGESTION SOA CH EST PAIN [id number] 07/28/2012 14:43:00 07/28/2012 23:59: 59 CLS Outpatient MARYLOU AZAR APRN [id number] 05/29/2012 10:02:00 05/29/2012 23:59:5 9 [facility] Outpatient
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
--- NOTE | 2019-12-19 13:08 | Diagnostic Imaging Report ---
EXAM: Right wrist at 1:00 INDICATION: Wrist pain 3 views were obtained. FINDINGS: There are no prior studies available for comparison. There is no fracture, dislocation or acute bony abnormality evident. There is mild narrowing of the radiocarpal joint. The soft tissues are unremarkable. IMPRESSION: There is no evidence for an acute bony abnormality. Dictated by: Dictated on workstation # [id number]
== END 2019-12-19 13:15 | disposition home or self-care (01) ==
LOC: EDUNIT# 12:38 → ER 12:39
DX: S50.11XA Contusion of right forearm, initial encounter (principal); J45.909 Unspecified asthma, uncomplicated; Z88.5 Allergy status to narcotic agent; Z88.2 Allergy status to sulfonamides; Z98.51 Tubal ligation status; Z79.52 Long term (current) use of systemic steroids; V89.2XXA Person injured in unspecified motor-vehicle accident, traffic, initial encounter
CPT/HCPCS: 73110

== ENCOUNTER → 2020-02-04 | Outpatient (CLI) | payer OTHER ==
--- NOTE | 2020-02-04 17:21 | Diagnostic Imaging Report ---
PROCEDURE: MRI right joint lower extremity without contrast. TECHNIQUE: Multiplanar, multisequence non contrast-enhanced MRI of the right lower extremity was accomplished. INDICATION: Fall with right knee pain. COMPARISON: None. FINDINGS: No acute fracture or dislocation is seen in the right knee. Alignment appears normal. No significant joint effusion is seen. The articular cartilage in the patellofemoral compartment demonstrates no full-thickness defects. The cartilage in the medial and lateral compartments demonstrate mild heterogeneity with no full-thickness defects. There is mildly increased signal in the medial meniscus at the junction of the posterior horn and body without definitive hyperintense signal extending to the articular surface. There is significant noise and artifact on the coronal STIR sequence. The lateral meniscus appears intact. The anterior and posterior cruciate ligaments are intact. The medial collateral ligament and the lateral collateral ligamentous complex are intact. The extensor mechanism is intact. The medial and lateral retinacula are intact. Soft tissues about the right knee are otherwise unremarkable. IMPRESSION: 1. Mildly increased signal in the medial meniscus without definitive tear seen. Dictated by: Dictated on workstation # [id number]
== END ==
LOC: RAD 14:06
PROVIDERS: ATTEND Nurse Practitioner Family
DX: S83.8X1D Sprain of other specified parts of right knee, subsequent encounter (principal); S80.11XD Contusion of right lower leg, subsequent encounter; S93.491A Sprain of other ligament of right ankle, initial encounter; J45.998 Other asthma; W22.8XXD Striking against or struck by other objects, subsequent encounter
CPT/HCPCS: 73721

== ENCOUNTER → 2020-08-18 | Outpatient (CLI) | payer SELFPAY | LOC: LABNPT 05:43 | PROVIDERS: ATTEND Orthopaedic Surgery | DX: Z01.812 Encounter for preprocedural laboratory examination (principal); Z20.828 Contact with and (suspected) exposure to other viral communicable diseases | CPT/HCPCS: 87635 ==

== ENCOUNTER 2021-06-07 11:55 | Emergency (ER) | payer OTHER ==
[~2021-06-07] VITALS: Ht 157 cm; Wt 108.0 kg
[2021-06-07] MEDS ORDERED: LACTATED RINGERS 1,000 ML IV ONE (12:15)
[2021-06-07] MEDS ORDERED: ONDANSETRON 4 MG/2 ML (SDV) Z0FRAN IVP ONE (12:15)
[2021-06-07 12:19] LABS: BASOPHILS % (AUTO) 0 % (0-10); EOSINOPHILS # (AUTO) 0.2 10^3/uL (0.0-0.3); EOSINOPHILS % (AUTO) 2 % (0-10); HEMATOCRIT 42 % (35-52); HEMOGLOBIN 14.2 g/dL (11.5-16.0); LYMPHOCYTES % (AUTO) 21 % (12-44); MEAN CORPUSCULAR HEMOGLOBIN 27 pg (25-34); MEAN CORPUSCULAR HGB CONC 34 g/dL (32-36); MEAN CORPUSCULAR VOLUME 81 fL (80-99); MEAN PLATELET VOLUME 9.2 fL (9.0-12.2); MONOCYTES # (AUTO) 0.7 10^3/uL (0.0-1.0); MONOCYTES % (AUTO) 8 % (0-12); NEUTROPHILS # (AUTO) 6.2 10^3/uL (1.8-7.8); NEUTROPHILS % (AUTO) 68 % (42-75); PLATELET COUNT 235 10^3/uL (130-400); WHITE BLOOD COUNT 9.1 10^3/uL (4.3-11.0)
[2021-06-07 12:31] LABS: ALBUMIN 4.3 GM/DL (3.2-4.5); POTASSIUM 4.1 MMOL/L (3.6-5.0)
[2021-06-07 12:33] LABS: CALCIUM 9.7 MG/DL (8.5-10.1)
[2021-06-07 12:34] LABS: TOTAL PROTEIN 7.7 GM/DL (6.4-8.2)
[2021-06-07 12:36] LABS: BILIRUBIN,TOTAL 0.7 MG/DL (0.1-1.0)
[2021-06-07 12:37] LABS: CREATININE SERUM 0.79 MG/DL (0.60-1.30)
[2021-06-07 13:05] LABS: BILIRUBIN,URINE NEGATIVE (NEGATIVE); CLARITY,URINE CLEAR; COLOR,URINE YELLOW; GLUCOSE, URINE (UA) NEGATIVE (NEGATIVE); KETONES,URINE NEGATIVE (NEGATIVE); LEUKOCYTE ESTERASE ,URINE NEGATIVE (NEGATIVE); NITRITE,URINE NEGATIVE (NEGATIVE); PROTEIN,URINE NEGATIVE (NEGATIVE)
[2021-06-07 13:30] LABS: BACTERIA,URINE NEGATIVE /HPF; WBC,URINE RARE /HPF
[2021-06-07] MEDS ORDERED: NS 100 ML (IVPB) BAG IV ONE (14:00)
[2021-06-07] MEDS ORDERED: IOHEXOL 350 MG/ML 100 ML (OMNIPAQUE 350) VIAL IV ONE (14:00)
[2021-06-07] MEDS ORDERED: HOLD METFORMIN - RECEIVED CONTRAST 20 ML VIAL IV SCH (14:00)
--- NOTE | 2021-06-07 14:46 | Diagnostic Imaging Report ---
PROCEDURE: CT abdomen and pelvis with contrast. TECHNIQUE: Multiple contiguous axial images were obtained through the abdomen and pelvis after administration of intravenous contrast. Auto Exposure Controls were utilized during the CT exam to meet ALARA standards for radiation dose reduction. All CT scans use one or more of the following dose optimizing techniques: automated exposure control, MA and/or KvP adjustment based on patient size and exam type or iterative reconstruction. INDICATION: Nausea and vomiting. COMPARISON: None. FINDINGS: The lung bases are clear. Gallstones are seen within the gallbladder without cholecystitis. The solid organs, vascular structures, and bowel are normal. The appendix is not seen with certainty. There is no inflammatory change to suggest acute appendicitis. There is a 3 cm benign-appearing cyst in the left ovary. There is no free air or free fluid. No inflammation is seen. The urinary bladder is unremarkable. There is no hernia. The osseous structures are age-appropriate. IMPRESSION: 1. Cholelithiasis without CT evidence of cholecystitis. 2. There is a 3 cm left ovarian cyst. 3. No inflammatory change or process is identified. Dictated by: Dictated on workstation # [id number]
[2021-06-07] MEDS ORDERED: ONDA4TAB11 SL ×2 (15:29→15:30)
[2021-06-07] MEDS ORDERED: KETOROLAC 30 MG/ML VIAL IVP ONE (15:30)
--- NOTE | 2021-06-07 15:31 | ED Abdominal Pain ---
General Chief Complaint: Abdominal/GI Problems Stated Complaint: ABD PAIN Nursing Triage Note: PT ARRIVES TO ER WITH C/O LOWER ABD PAIN THAT RADIATES FROM RIGHT TO LEFT THAT STARTED YESTERDAY. PT WAS SEEN AT PSYCHIATRIC CLINIC TODAY ALSO AND SENT HERE FOR FURTHER EVALUATION. PT SAID SHE HAS NO HAD ANY N/V/D BUT HAS HAD LOOSER STOOL Source of Information: Patient Exam Limitations: No Limitations History of Present Illness Date Seen by Provider: Jun 07, 2021 Time Seen by Provider: 11:58 Initial Comments This 46-year-old woman presents to the emergency room with complaints of fairly intense abdominal pain. She has associated nausea without vomiting. Stools have been loose but no diarrhea or constipation. She denies fever. Pain started in the right flank and lower abdomen on June 03. Since then it has migrated to the left lower quadrant. She has had kidney stones previously but states this does not feel like stones. She retains her appendix and ovaries. Denies any urinary changes. She appears in mild distress with splinted respirations. Allergies and Home Medications Allergies Coded Allergies: butorphanol (Verified Adverse Reaction, Unknown, VOMITING, 10/12/17) meperidine (Verified Adverse Reaction, Unknown, VOMITING, 10/12/17) Uncoded Allergies: SULFA (Adverse Reaction, Unknown, VOMITING, 10/12/17) Patient Home Medication List Home Medication List Reviewed: Yes Albuterol Sulfate (Proair Hfa) 8.5 Gm Hfa.aer.ad, 1-2 PUFF IH Q4H PRN for SHORTNESS OF BREATH Prescribed by: LEAH MERRITT on 08/22/16 1315 Azithromycin (Azithromycin) 250 Mg Tablet, 250 MG PO UD Prescribed by: LEAH MERRITT on 08/22/16 1315 D-Methorphan Hb/P-Epd HCl/Bpm (Bromfed Dm Cough Syrup) 118 Ml Syrup, 5 ML PO Q6H PRN for CONGESTION Prescribed by: LEAH MERRITT on 10/12/172056 Ondansetron (Ondansetron Odt) 4 Mg Tab.rapdis, 4 MG SL Q4H PRN for NAUSEA/VOMITING Prescribed by: ANGELICA KELLEY on 06/07/21 1530 Prednisone (Prednisone) 20 Mg Tab, 40 MG PO DAILY Prescribed by: PASCUAL FRAZIER on 10/14/17 175 Prednisone (Prednisone) 20 Mg Tab, 40 MG PO DAILY Prescribed by: NADIA WELCH on 10/21/18 1448 Review of Systems Review of Systems Constitutional: no symptoms reported EENTM: No Symptoms Reported Respiratory: See HPI Cardiovascular: No Symptoms Reported Gastrointestinal: See HPI Genitourinary: No Symptoms Reported Musculoskeletal: no symptoms reported Skin: no symptoms reported Psychiatric/Neurological: No Symptoms Reported Endocrine: No Symptoms Reported Past Zsdjnvh-Kbynvg-Belmaf Hx Patient Social History Tobacco Use?: No Substance use?: No Alcohol Use?: No Pt feels they are or have been: No Immunizations Up To Date Influenza Vaccine Up-to-Date: No; Not Current Seasonal Allergies Seasonal Allergies: No Past Medical History Surgeries: Yes Tubal Ligation Respiratory: Yes Asthma Cardiac: Yes High Cholesterol Neurological: No Last Menstrual Period: May 17, 2021 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 oz. 99.551891il; 43.00 BMI Method:Stated General Appearance: WD/WN, no apparent distress HEENT: PERRL/EOMI, normal ENT inspection Neck: normal inspection Respiratory: lungs clear, normal breath sounds, no respiratory distress Cardiovascular: regular rate, rhythm, no edema, no murmur Gastrointestinal: soft, abnormal bowel sounds (Decreased); No distended; tenderness (Across the lower abdomen, more focused in the left lower quadrant) Extremities: normal inspection, no pedal edema Neurologic/Psychiatric: glass inserter II-XII nml as tested, no motor/sensory deficits, alert, normal mood/affect, oriented x 3 Skin: normal color, warm/dry Progress/Results/Core Measures Results/Orders Lab Results Laboratory Tests Test 06/07/21 12:10 06/07/21 12:54 Range/Units White Blood Count 9.1 4.3-11.0 10^3/uL Red Blood Count 5.23 H 3.80-5.11 10^6/uL Hemoglobin 14.2 11.5-16.0 g/dL Hematocrit 42 35-52 % Mean Corpuscular Volume 81 80-99 fL Mean Corpuscular Hemoglobin 27 25-34 pg Mean Corpuscular Hemoglobin Concent 34 32-36 g/dL Red Cell Distribution Width 12.9 10.0-14.5 % Platelet Count 235 130-400 10^3/uL Mean Platelet Volume 9.2 9.0-12.2 fL Immature Granulocyte % (Auto) 0 % Neutrophils (%) (Auto) 68 42-75 % Lymphocytes (%) (Auto) 21 12-44 % Monocytes (%) (Auto) 8 0-12 % Eosinophils (%) (Auto) 2 0-10 % Basophils (%) (Auto) 0 0-10 % Neutrophils # (Auto) 6.2 1.8-7.8 10^3/uL Lymphocytes # (Auto) 2.0 1.0-4.0 10^3/uL Monocytes # (Auto) 0.7 0.0-1.0 10^3/uL Eosinophils # (Auto) 0.2 0.0-0.3 10^3/uL Basophils # (Auto) 0.0 0.0-0.1 10^3/uL Immature Granulocyte # (Auto) 0.0 0.0-0.1 10^3/uL Sodium Level 137 135-145 MMOL/L Potassium Level 4.1 3.6-5.0 MMOL/L Chloride Level 106 98-107 MMOL/L Carbon Dioxide Level 20 L 21-32 MMOL/L Anion Gap 11 5-14 MMOL/L Blood Urea Nitrogen 10 7-18 MG/DL Creatinine 0.79 0.60-1.30 MG/DL Estimat Glomerular Filtration Rate 78 BUN/Creatinine Ratio 13 Glucose Level 95 70-105 MG/DL Calcium Level 9.7 8.5-10.1 MG/DL Corrected Calcium 9.5 8.5-10.1 MG/DL Total Bilirubin 0.7 0.1-1.0 MG/DL Aspartate Amino Transf (AST/SGOT) 18 5-34 U/L Alanine Aminotransferase (ALT/SGPT) 19 0-55 U/L Alkaline Phosphatase 92 40-136 U/L C-Reactive Protein High Sensitivity 1.55 H 0.00-0.50 MG/DL Total Protein 7.7 6.4-8.2 GM/DL Albumin 4.3 3.2-4.5 GM/DL Lipase 12 8-78 U/L Serum Test, Qualitative NEGATIVE NEGATIVE Urine Color YELLOW Urine Clarity CLEAR Urine pH 6.0 5-9 Urine Specific [place] 1.015 L 1.016-1.022 Urine Protein NEGATIVE NEGATIVE Urine Glucose (UA) NEGATIVE NEGATIVE Urine Ketones NEGATIVE NEGATIVE Urine Nitrite NEGATIVE NEGATIVE Urine Bilirubin NEGATIVE NEGATIVE Urine Urobilinogen 0.2 < = 1.0 MG/DL Urine Leukocyte Esterase NEGATIVE NEGATIVE Urine RBC (Auto) NEGATIVE NEGATIVE Urine RBC NONE /HPF Urine WBC RARE /HPF Urine Squamous Epithelial Cells 2-5 /HPF Urine Crystals NONE /LPF Urine Bacteria NEGATIVE /HPF Urine Casts NONE /LPF Urine Mucus NEGATIVE /LPF Urine Culture Indicated NO My Orders Orders - ANGELICA DUARTE MD Cbc With Automated Diff (06/07/21 11:58) Comprehensive Metabolic Panel (06/07/21 11:58) Hs C Reactive Protein (06/07/21 11:58) Ua Culture If Indicated (06/07/21 11:58) Ed Iv/Invasive Line Start (06/07/21 11:58) Lipase (06/07/21 12:06) Hcg,Qualitative Serum (06/07/21 12:06) Lactated Ringers (Lr 1000 Ml Iv Solution (06/07/21 12:15) Ondansetron Injection (Zofran Injectio (06/07/21 12:15) Ct Abdomen/Pelvis W (06/07/21 13:41) Iohexol Injection (Omnipaque 350 Mg/Ml 1 (06/07/21 14:00) Received Contrast (Hold Metformin- Contr (06/07/21 14:00) Ns (Ivpb) (Sodium Chloride 0.9% Ivpb Bag (06/07/21 14:00) Ketorolac Injection (Toradol Injection) (06/07/21 15:30) Medications Given in ED Vital Signs/I&O 06/07/21 06/07/21 12:05 15:34 Temp 35.8 35.8 Pulse 95 80 Resp 20 18 B/P (MAP) 126/83 (97) 125/86 Pulse Ox 96 98 O2 Delivery Room Air Room Air 06/08/21 00:00 Intake Total 1000 ml Balance 1000 ml Blood Pressure Mean: 97 Progress Progress Note : Progress Note Patient was treated with Zofran but declined pain medication. Labs and urinalysis were relatively unremarkable. I discussed risks and benefits of CT scan. Patient elects to proceed with CT imaging. CT demonstrated to pathologic findings. She had cholelithiasis without cholecystitis and a left ovarian cyst. It is likely both of these findings are contributing to her symptoms. Patient was treated with Toradol and discharge instructions were reviewed. She was encouraged to follow-up with a general surgeon. Diagnostic Imaging Diagonstic Imaging: CT Plain Films/CT/US/NM/MRI: abdomen, pelvis Comments CT abdomen pelvis viewed by me and report reviewed. See report below: NAME: [facility] REC#: [id number] PT STATUS: DEP ER : 1975 PHYSICIAN: ANGELICA DUARTE MD ADMIT DATE: 06/07/21/ER Signed Date of Exam:06/07/21 CT ABDOMEN/PELVIS W PROCEDURE: CT abdomen and pelvis with contrast. TECHNIQUE: Multiple contiguous axial images were obtained through the abdomen and pelvis after administration of intravenous contrast. Auto Exposure Controls were utilized during the CT exam to meet ALARA standards for radiation dose reduction. All CT scans use one or more of the following dose optimizing techniques: automated exposure control, MA and/or KvP adjustment based on patient size and exam type or iterative reconstruction. INDICATION: Nausea and vomiting. COMPARISON: None. FINDINGS: The lung bases are clear. Gallstones are seen within the gallbladder without cholecystitis. The solid organs, vascular structures, and bowel are normal. The appendix is not seen with certainty. There is no inflammatory change to suggest acute appendicitis. There is a 3 cm benign-appearing cyst in the left ovary. There is no free air or free fluid. No inflammation is seen. The urinary bladder is unremarkable. There is no hernia. The osseous structures are age-appropriate. IMPRESSION: 1. Cholelithiasis without CT evidence of cholecystitis. 2. There is a 3 cm left ovarian cyst. 3. No inflammatory change or process is identified. Dictated by: Dictated on workstation # [id number] Dict: 06/07/21 1424 Trans: 06/07/21 1535 [id number] Interpreted by: SHAWN GLOVER Electronically signed by: SHAWN GLOVER 06/07/21 1535 Departure Impression Primary Impression: Generalized abdominal pain Additional Impressions: Left ovarian cyst Cholecystitis Nausea Disposition: 01 HOME, SELF-CARE Condition: Improved Departure-Patient Inst. Decision time for Depature: 15:26 Referrals: [facility] (PCP) Primary Care Physician VITA GRAY (Family) Primary Care Physician GRACY LEDBETTER BRETT D DO KIDO, TAKAAKI MD Patient Instructions: Gallstones, Ovarian Cyst ED Add. Discharge Instructions: Drink plenty of clear liquids to stay well-hydrated. To avoid irritating your gallbladder, eat a diet low in fats, oils, and greases. Follow-up with your primary care provider and a surgeon as soon as possible. A list of general surgeons in [place] is provided below. You may use Tylenol (acetaminophen) up to 1000 mg every 6 hours as needed for pain. You may add ibuprofen sparingly up to 600 mg every 6 hours as needed for pain not controlled by Tylenol. It may be beneficial to add omeprazole 20 mg twice daily to help with stomach irritation. Use the Zofran (ondansetron) as prescribed for nausea and vomiting. Call with questions or concerns. Return to the ER if you have worsening symptoms or develop new symptoms such as fever or chills. All discharge instructions reviewed with patient and/or family. Voiced understanding. Scripts Ondansetron (Ondansetron Odt) 4 Mg Tab.rapdis 4 MG SL Q4H PRN for NAUSEA/VOMITING, #10 TAB Prov: ANGELICA DUARTE MD 06/07/21 Copy Copies To 1: MORGAN CONTRERAS JOSHUA T MD Jun 07, 2021 15:31
[2021-06-07 15:34] VITALS: BP 125/86
== END 2021-06-07 15:34 | disposition home or self-care (01) ==
LOC: EDUNIT# 11:55 → ER 11:56
DX: N83.202 Unspecified ovarian cyst, left side (principal); K81.9 Cholecystitis, unspecified; J45.909 Unspecified asthma, uncomplicated; Z79.52 Long term (current) use of systemic steroids
CPT/HCPCS: 36415; 74177; 80053; 81000; 83690; 84703; 85025; 86141